=== PATIENT | male | born 1965 | race Caucasian/White ===

== ENCOUNTER 2021-08-19 08:09 | Outpatient (CLI) | payer BC, SELFPAY ==
[2021-08-19 18:37] LABS: Hematocrit 45.8 % (42.0-52.0); Hemoglobin 15.1 g/dL (14.0-18.0); Mean Corpuscular Hemoglobin 30.8 pg (26-34); Mean Corpuscular Volume 93.5 fl (80-100); Mean Platelet Volume 10.4 fl (7.4-10.4); Platelet Count Result 271 k/mm3 (150-375); White Blood Count 7.6 K/mm3 (4.5-10.0)
[2021-08-19 18:44] LABS: Add Urine Microscopic? YES; Appearance Urine Cloudy (Clear); Bacteria Urine Trace /hpf; Bilirubin Urine Negative (Negative); Blood Urine 1+ (Negative); Color Urine Yellow (Yellow); Glucose Urine UA Negative (Negative); Ketones Urine Negative (Negative); Leukocyte Esterase Ur Negative LEU/UL (NEGATIVE); Mucus Urine Rare /lpf; Nitrate Urine Negative (Negative); Protein Urine Negative (Negative); Specific Grav Ur 1.021 (1.001-1.035); Squamous Epithelial Cell Urine Rare /hpf (Few); Urobilinogen Urine Negative mg/dL (<2.0); WBC Urine 0-3 /hpf (0-3)
[2021-08-19 18:51] LABS: Hemoglobin A1C 5.7 % (<5.7)
[2021-08-19 19:47] LABS: Alanine Aminotransferase 46 U/L (4-50); Albumin Level 4.3 g/dL (3.5-5.1); Alkaline Phosphatase 70 U/L (38-126); Anion Gap 9 mmol/L (8-16); Aspartate Amino Transferase 45 U/L (17-59); Bilirubin,Total 0.6 mg/dL (0.2-1.3); Blood Urea Nitrogen 10 mg/dL (9-20); Calcium 9.7 mg/dL (8.4-10.2); Carbon Dioxide 25 mmol/L (22-30); Chloride 112 mmol/L (98-107); Cholesterol 218 mg/dL (0-200); Estimated Glomerular Filt Rate > 60; Glucose 119 mg/dL (65-110); HDL Direct 59 mg/dL; Potassium 4.4 mmol/L (3.4-5.0); Sodium 146 mmol/L (137-145); Triglycerides 156 mg/dL (<150)
[2021-08-19 19:57] LABS: LDL Cholesterol Direct 144 mg/dL
[2021-08-19 20:17] LABS: Prostate Specific Antigen 0.8 ng/mL (< OR = 4.0)
== END 2021-08-19 08:10 | disposition home or self-care (01) ==
PROVIDERS: PCP Family Medicine; Visit Provider Family Medicine
DX: R53.83 Other fatigue (principal); I10 Essential (primary) hypertension; Z00.00 Encounter for general adult medical examination without abnormal findings; R36.1 Hematospermia
CPT/HCPCS: 36415; 80053; 80061; 81001; 83036; 84153; 85027; 87086; 87486; G0103

== ENCOUNTER 2022-05-14 11:59 | Outpatient (CLI) | payer BC, SELFPAY | END 2022-05-14 12:00 | disposition home or self-care (01) | PROVIDERS: PCP Family Medicine; Visit Provider Family Medicine | DX: R63.5 Abnormal weight gain (principal) | CPT/HCPCS: 36415; 84443 ==

== ENCOUNTER 2022-08-04 09:06 | Emergency (ER) | payer BC, SELFPAY ==
[2022-08-04 09:11] VITALS: BP 165/96; PULSE 80; RESP 16; TEMP 36.4; O2SAT 99
--- NOTE | 2022-08-04 09:23 | ED.URI ---
HPI - URI/Sore Throat General Chief Complaint: Upper Respiratory Infection Stated Complaint: Had a sore throat Thursday Time Seen by Provider: 08/04/22 09:23 Source: patient Mode of arrival: ambulatory Limitations: no limitations History of Present Illness HPI Narrative: 57-year-old male presented for complaint of sore throat 2 days ago. At that time he lost his voice and had to call off of work. Endorses symptoms have improved. He states he needs a work note to return to work. Denies any other symptoms at this time. Related Data Allergies Allergy/AdvReac Type Severity Reaction Status Date / Time Penicillins Allergy Unknown Unknown Verified 12/03/21 15:41 Review of Systems Review of Systems: CONSTITUTIONAL: Denies body aches, fever, chills, or sweats. EYES: Denies visual changes, redness, or discharge. ENT: Denies rhinorrhea, congestion, sore throat, or otalgia. CARDIOVASCULAR: Denies chest pain, palpitations, or edema. RESPIRATORY: Denies cough or dyspnea. MUSCULOSKELETAL: Denies back pain, joint pain, or myalgia. NEUROLOGIC: Denies headache, numbness, tingling, or weakness. All systems reviewed & are unremarkable except as noted in HPI and below PMFSH Past Medical History Medical History Hernia HTN (hypertension) Melanoma Surgical History Surgical History H/O hernia repair Hx of tonsillectomy Family History Family History Mother Family history of Alzheimer's disease Family history of malignant neoplasm of breast Father Malignant neoplasm of prostate Family history of lymphoma Social History Social History Smoking packs per day: 1 Smoking cigarettes per day: 20.0 Years smoked: 30 Smoking pack-years: 30.00 Smoking status: Current every day smoker Tobacco type: cigarettes Second hand tobacco smoke exposure: Yes Alcohol intake: current Drinks per week: 18 Substance use: never Comments At time of signature, I have reviewed and agree with nursing past medical, surgical, social and family history unless otherwise noted. Please see nursing chart for further information. There is no relevant family history pertinent to the presenting complaint Exam Narrative: GENERAL: Well-appearing EYES: EOMI. No redness or drainage. Conjunctivae normal. ENT: Mucous membranes pink and moist. No rhinorrhea. TMs normal bilaterally. Throat normal. Uvula absent, tonsils absent. NECK: Normal AROM. Supple. No lymphadenopathy. CHEST: Clear to auscultation. HEART: Regular rate and rhythm. No murmur appreciated. Normal peripheral pulses. ABDOMEN: Soft, nontender, nondistended, normal active bowel sounds. SKIN: Warm, dry, no rash. Capillary refill normal. Normal skin turgor. NEURO: No focal deficits. Alert and oriented x3. Gait steady. Course Course Emergency Course: Patient is aware of diagnosis, understands and agrees to treatment plan. Anticipatory guidance given. Patient agrees to follow-up as directed and is aware of reasons to seek care at the emergency department. Portions of this record may have been created with voice recognition software Level of Care: Express Care Visit Vital Signs Vital signs: Vital Signs Temperature 97.6 F 08/04/22 09:11 Pulse Rate 80 08/04/22 09:11 Respiratory Rate 16 08/04/22 09:11 Blood Pressure 165/96 H 08/04/22 09:11 Pulse Oximetry 99 08/04/22 09:11 Oxygen Delivery Room Air 08/04/22 09:11 Temperature 97.6 F 08/04/22 09:11 Pulse Rate 80 08/04/22 09:11 Respiratory Rate 16 08/04/22 09:11 Blood Pressure 165/96 H 08/04/22 09:11 Pulse Oximetry 99 08/04/22 09:11 Oxygen Delivery Room Air 08/04/22 09:11 MDM - URI/Sore Throat MDM Narrative Medical decision making narrative: Advised sup
== END 2022-08-04 09:35 | disposition home or self-care (01) ==
PROVIDERS: Emergency Provider Nurse Practitioner Family; PCP Family Medicine
DX: J02.9 Acute pharyngitis, unspecified (principal); Z87.891 Personal history of nicotine dependence; I10 Essential (primary) hypertension; Z85.820 Personal history of malignant melanoma of skin
CPT/HCPCS: 99211; G0463

== ENCOUNTER 2023-03-23 13:27 | Outpatient (CLI) | payer BC, SELFPAY ==
[2023-03-23 21:17] LABS: Alanine Aminotransferase 30 U/L (6-50); Albumin Level 4.7 g/dL (3.5-5.1); Alkaline Phosphatase 66 U/L (38-126); Anion Gap 9 mmol/L (8-16); Aspartate Amino Transferase 48 U/L (17-59); Bilirubin,Total 0.5 mg/dL (0.2-1.3); Blood Urea Nitrogen 22 mg/dL (9-20); Calcium 10.4 mg/dL (8.4-10.2); Carbon Dioxide 26 mmol/L (22-30); Chloride 104 mmol/L (98-107); Cholesterol 216 mg/dL (0-200); Estimated Glomerular Filt Rate > 60; Glucose 91 mg/dL (65-110); HDL Direct 48 mg/dL; Potassium 3.9 mmol/L (3.4-5.0); Sodium 139 mmol/L (137-145); Triglycerides 197 mg/dL (<150)
[2023-03-23 21:31] LABS: LDL Cholesterol Direct 123 mg/dL
[2023-03-23 21:42] LABS: Basophils Absolute Auto 0.1 K/mm3 (0.0-0.1); Basophils Percent Auto 1.1 % (0.2-1.2); Eosinophils Absolute Auto 0.2 K/mm3 (0-0.3); Hematocrit 46.6 % (42.0-52.0); Hemoglobin 15.2 g/dL (14.0-18.0); Immature Granulocyte Absolute 0.02 K/mm3 (0.00-0.031); Immature Granulocyte Percent A 0.3 % (0-0.5); Lymphocytes Percent Auto 26.3 % (18.3-44.2); Mean Corpuscular HGB Conc 32.6 g/dl (32-36); Mean Corpuscular Hemoglobin 29.5 pg (26-34); Mean Corpuscular Volume 90.5 fl (80-100); Mean Platelet Volume 10.7 fl (7.4-10.4); Monocytes Absolute Auto 0.6 K/mm3 (0.1-0.6); Monocytes Percent Auto 7.1 % (2.6-8.5); Neutrophils Absolute Auto 5.1 K/mm3 (1.3-6.7); Neutrophils Percent Auto 63.2 % (45.5-73.1); Platelet Count Result 289 k/mm3 (150-375); Red Blood Count 5.15 M/mm3 (4.6-6.20)
[2023-03-23 21:52] LABS: Prostate Specific Antigen 0.8 ng/mL (< OR = 4.0)
[2023-03-23 23:08] LABS: Hemoglobin A1C 5.6 % (<5.7)
== END 2023-03-23 13:28 | disposition home or self-care (01) ==
LOC: ANHBWCLAB 13:28
PROVIDERS: PCP Family Medicine; Visit Provider Family Medicine
DX: Z00.00 Encounter for general adult medical examination without abnormal findings (principal); R73.03 Prediabetes; C43.9 Malignant melanoma of skin, unspecified; G47.33 Obstructive sleep apnea (adult) (pediatric); I10 Essential (primary) hypertension; N52.9 Male erectile dysfunction, unspecified; R53.83 Other fatigue; E66.9 Obesity, unspecified
CPT/HCPCS: 36415; 80053; 80061; 83036; 84153; 84443; 85025; G0103

== ENCOUNTER 2023-10-15 13:57 | Outpatient (CLI) | payer BC, SELFPAY ==
[2023-10-15 19:04] LABS: Alanine Aminotransferase 26 U/L (6-50); Albumin Level 4.3 g/dL (3.5-5.1); Alkaline Phosphatase 70 U/L (38-126); Anion Gap 10 mmol/L (8-16); Aspartate Amino Transferase 43 U/L (17-59); Bilirubin,Total 0.8 mg/dL (0.2-1.3); Blood Urea Nitrogen 16 mg/dL (9-20); Calcium 9.8 mg/dL (8.4-10.2); Carbon Dioxide 28 mmol/L (22-30); Chloride 102 mmol/L (98-107); Cholesterol 233 mg/dL (0-200); Estimated Glomerular Filt Rate > 60; Glucose 94 mg/dL (65-110); HDL Direct 42 mg/dL; Magnesium 2.3 mg/dL (1.6-2.3); Sodium 140 mmol/L (137-145); Triglycerides 195 mg/dL (<150)
[2023-10-15 19:14] LABS: Basophils Absolute Auto 0.1 K/mm3 (0.0-0.1); Basophils Percent Auto 1.6 % (0.2-1.2); Eosinophils Absolute Auto 0.3 K/mm3 (0-0.3); Eosinophils Percent Auto 4.2 % (0-4.4); Hemoglobin 15.5 g/dL (14.0-18.0); Immature Granulocyte Absolute 0.01 K/mm3 (0.00-0.031); Immature Granulocyte Percent A 0.1 % (0-0.5); Lymphocytes Absolute Auto 2.37 K/mm3 (0.9-3.2); Lymphocytes Percent Auto 35.4 % (18.3-44.2); Mean Corpuscular HGB Conc 32.3 g/dl (32-36); Mean Corpuscular Hemoglobin 30.2 pg (26-34); Mean Corpuscular Volume 93.4 fl (80-100); Mean Platelet Volume 10.4 fl (7.4-10.4); Monocytes Absolute Auto 0.5 K/mm3 (0.1-0.6); Monocytes Percent Auto 7.6 % (2.6-8.5); Neutrophils Absolute Auto 3.4 K/mm3 (1.3-6.7); Neutrophils Percent Auto 51.1 % (45.5-73.1); Platelet Count Result 274 k/mm3 (150-375); Red Blood Count 5.14 M/mm3 (4.6-6.20); Red Cell Distribution Width 13.1 % (11.5-14.5); White Blood Count 6.7 K/mm3 (4.5-10.0)
[2023-10-15 19:15] LABS: LDL Cholesterol Direct 135 mg/dL
[2023-10-15 19:40] LABS: Prostate Specific Antigen 0.9 ng/mL (< OR = 4.0)
== END 2023-10-15 13:58 | disposition home or self-care (01) ==
LOC: ANHBWCLAB 13:58
PROVIDERS: PCP Nurse Practitioner Adult Health; Visit Provider Nurse Practitioner Adult Health
DX: I10 Essential (primary) hypertension (principal); R73.03 Prediabetes; Z12.5 Encounter for screening for malignant neoplasm of prostate; Z12.11 Encounter for screening for malignant neoplasm of colon
CPT/HCPCS: 36415; 80053; 80061; 83036; 83735; 84153; 84443; 85025; G0103

== ENCOUNTER 2024-04-18 15:19 | Outpatient (CLI) | payer BC, SELFPAY ==
[2024-04-18 19:43] LABS: Basophils Absolute Auto 0.1 K/mm3 (0.0-0.1); Basophils Percent Auto 1.6 % (0.2-1.2); Eosinophils Absolute Auto 0.2 K/mm3 (0-0.3); Eosinophils Percent Auto 3.3 % (0-4.4); Hematocrit 46.2 % (42.0-52.0); Hemoglobin 15.5 g/dL (14.0-18.0); Immature Granulocyte Absolute 0.02 K/mm3 (0.00-0.031); Immature Granulocyte Percent A 0.3 % (0-0.5); Lymphocytes Absolute Auto 2.28 K/mm3 (0.9-3.2); Lymphocytes Percent Auto 33.1 % (18.3-44.2); Mean Corpuscular HGB Conc 33.5 g/dl (32-36); Mean Corpuscular Hemoglobin 30.8 pg (26-34); Mean Corpuscular Volume 91.8 fl (80-100); Mean Platelet Volume 10.9 fl (7.4-10.4); Monocytes Absolute Auto 0.5 K/mm3 (0.1-0.6); Monocytes Percent Auto 7.7 % (2.6-8.5); Neutrophils Absolute Auto 3.7 K/mm3 (1.3-6.7); Platelet Count Result 255 k/mm3 (150-375); Red Blood Count 5.03 M/mm3 (4.6-6.20); White Blood Count 6.9 K/mm3 (4.5-10.0)
[2024-04-18 20:12] LABS: Alanine Aminotransferase 22 U/L (6-50); Albumin Level 4.7 g/dL (3.5-5.1); Alkaline Phosphatase 69 U/L (38-126); Anion Gap 8 mmol/L (4-12); Aspartate Amino Transferase 63 U/L (17-59); Blood Urea Nitrogen 22 mg/dL (9-20); Calcium 9.5 mg/dL (8.4-10.2); Carbon Dioxide 26 mmol/L (22-30); Chloride 105 mmol/L (98-107); Cholesterol 206 mg/dL (0-200); Estimated Glomerular Filt Rate > 60; Glucose 88 mg/dL (65-110); HDL Direct 43 mg/dL; Magnesium 2.3 mg/dL (1.6-2.3); Potassium 3.9 mmol/L (3.4-5.0); Sodium 139 mmol/L (137-145); Triglycerides 99 mg/dL (<150)
[2024-04-18 20:24] LABS: LDL Cholesterol Direct 132 mg/dL
[2024-04-18 20:43] LABS: Prostate Specific Antigen 0.7 ng/mL (< OR = 4.0)
[2024-04-18 20:59] LABS: Hemoglobin A1C 5.6 % (<5.7)
== END 2024-04-18 15:20 | disposition home or self-care (01) ==
LOC: ANHBWCLAB 15:22
PROVIDERS: PCP Nurse Practitioner Adult Health; Visit Provider Nurse Practitioner Adult Health
DX: Z12.5 Encounter for screening for malignant neoplasm of prostate (principal); I10 Essential (primary) hypertension; E11.9 Type 2 diabetes mellitus without complications
CPT/HCPCS: 36415; 80053; 80061; 83036; 83735; 84153; 84443; 85025; G0103

== ENCOUNTER 2024-05-30 14:16 | Emergency (ER) | payer BC, SELFPAY ==
--- NOTE | ~2024-05-30 | XR_ITS ---
XR chest 2V Ordering provider: Laisha Lipscomb APRN History: 59 years Male with . sob; cough; smoker . Comparison: June 23, 2019 FINDINGS: MEDIASTINUM: The cardiac silhouette is not enlarged. LUNGS: No infiltrates, effusions or pneumothorax. OTHER: No free air under the diaphragm. IMPRESSION: No acute cardiopulmonary pathology. Reviewed, dictated and finalized at location A.
[2024-05-30 14:23] VITALS: BP 153/94; PULSE 79; RESP 20; TEMP 36.6; O2SAT 97
--- NOTE | 2024-05-30 14:33 | ED.URI ---
HPI - URI/Sore Throat General Chief Complaint: Upper Respiratory Infection Stated Complaint: Cough Time Seen by Provider: 05/30/24 14:34 Source: patient, RN notes reviewed and old records reviewed Mode of arrival: ambulatory Limitations: no limitations History of Present Illness HPI Narrative: 59-year-old male to Express Care for complaint of cough, congestion, runny nose and increased shortness of breath for 1 week. Patient endorses 1 pack per day history. Patient has attempted to treat at home with Mucinex, NyQuil, DayQuil little relief. Patient hypertensive in triage. Patient denies difficulty breathing, difficulty swallowing sore throat, productive, chest pain, weakness, headache, ear pain. Patient able to tolerate fluids by mouth. Respirations even nonlabored. Patient able to speak in complete sentences without difficulty. Patient in no acute distress. Related Data Allergies Allergy/AdvReac Type Severity Reaction Status Date / Time Penicillins Allergy Unknown Unknown Verified 05/30/24 14:34 Review of Systems Review of Systems: All systems reviewed & are unremarkable except as noted in HPI and below Constitutional: Constitutional: Reports as per HPI, Denies body ache(s), Denies chills and Reports fever(s) ( Subjective) Eyes: Eyes: Reports no additional eye complaints ENT: Reports system reviewed and no additional complaints, except as documented Cardiovascular: Cardiovascular: Reports as per HPI, Denies chest pain and Reports dyspnea Respiratory: Respiratory: Reports no additional respiratory complaints, Reports cough and Denies dyspnea Musculoskeletal: Musculoskeletal: Reports no additional musculoskeletal complaints Neurologic: Reports system reviewed and no additional complaints, except as documented Psychiatric: Psychiatric: Reports no additional psychiatric complaints PMFSH Past Medical History Medical History Hernia HTN (hypertension) Melanoma Surgical History Surgical History H/O hernia repair Hx of tonsillectomy Family History Family History Mother Family history of Alzheimer's disease Family history of malignant neoplasm of breast Father Malignant neoplasm of prostate Family history of lymphoma Social History Social History Smoking packs per day: 1 Smoking cigarettes per day: 20.0 Years smoked: 30 Smoking pack-years: 30.00 Smoking status: Current every day smoker Tobacco type: cigarettes Second hand tobacco smoke exposure: Yes Alcohol intake: current Drinks per week: 18 Substance use: never Lack of Transportation: No Lack of Food: Never True Current Housing: I Have Housing Concerned About Future Housing: No Difficulty Paying Gas/Electric Bills: No Difficulty Paying for Meds: No Currently Unemployed: No Education: Trade/Vocational Certificate Difficulty w/ Childcare or Family Care: No Living arrangements: with family Gender identity (if verbalized by the patient): Male Comments At the time of my signature, I reviewed and agree with the nursing past medical, surgical, social, and family history. There is no relevant family history pertinent to the patient complaint. Exam Const: General: cooperative, no acute distress, alert, ill appearing chronically, tired appearing and well nourished Nutritional Appearance: well nourished Orientation/consciousness: patient oriented x3 Limitations: no limitations HENMT: Head: normal to inspection Ears: external ears normal Face/Nose/Sinus: Normal external nose present, Normal nares present, normal facial exam, No erythema and No edema Face and sinus: normal facial exam, no erythema and no edema Mouth: Yes Normal oral and palatal mucosa present Throat: postnasal
== END 2024-05-30 15:33 | disposition home or self-care (01) ==
PROVIDERS: Emergency Provider Nurse Practitioner Family; PCP Family Medicine
DX: J40 Bronchitis, not specified as acute or chronic (principal); F17.210 Nicotine dependence, cigarettes, uncomplicated; I10 Essential (primary) hypertension; Z85.820 Personal history of malignant melanoma of skin
CPT/HCPCS: 71046; 99213; G0463

== ENCOUNTER 2024-09-14 08:21 | Outpatient (CLI) | payer BC, SELFPAY ==
[2024-09-14 20:26] LABS: Basophils Absolute Auto 0.1 K/mm3 (0.0-0.1); Eosinophils Absolute Auto 0.3 K/mm3 (0-0.3); Eosinophils Percent Auto 4.3 % (0-4.4); Hematocrit 47.6 % (42.0-52.0); Hemoglobin 15.1 g/dL (14.0-18.0); Immature Granulocyte Absolute 0.01 K/mm3 (0.00-0.031); Immature Granulocyte Percent A 0.1 % (0-0.5); Lymphocytes Absolute Auto 2.61 K/mm3 (0.9-3.2); Lymphocytes Percent Auto 36.6 % (18.3-44.2); Mean Corpuscular HGB Conc 31.7 g/dl (32-36); Mean Corpuscular Hemoglobin 30.7 pg (26-34); Mean Corpuscular Volume 96.7 fl (80-100); Mean Platelet Volume 10.8 fl (7.4-10.4); Monocytes Absolute Auto 0.7 K/mm3 (0.1-0.6); Monocytes Percent Auto 9.4 % (2.6-8.5); Neutrophils Absolute Auto 3.4 K/mm3 (1.3-6.7); Neutrophils Percent Auto 47.6 % (45.5-73.1); Platelet Count Result 251 k/mm3 (150-375); Red Blood Count 4.92 M/mm3 (4.6-6.20); Red Cell Distribution Width 13.9 % (11.5-14.5); White Blood Count 7.1 K/mm3 (4.5-10.0)
[2024-09-14 21:29] LABS: Alanine Aminotransferase 21 U/L (6-50); Albumin Level 4.2 g/dL (3.5-5.1); Alkaline Phosphatase 61 U/L (38-126); Anion Gap 7 mmol/L (4-12); Aspartate Amino Transferase 54 U/L (17-59); Bilirubin,Total 0.5 mg/dL (0.2-1.3); Blood Urea Nitrogen 20 mg/dL (9-20); Calcium 9.4 mg/dL (8.4-10.2); Carbon Dioxide 32 mmol/L (22-30); Chloride 100 mmol/L (98-107); Cholesterol 232 mg/dL (0-200); Estimated Glomerular Filt Rate > 60; Glucose 105 mg/dL (65-110); HDL Direct 46 mg/dL; Magnesium 2.4 mg/dL (1.6-2.3); Potassium 4.6 mmol/L (3.4-5.0); Sodium 139 mmol/L (137-145); Triglycerides 187 mg/dL (<150)
[2024-09-14 21:40] LABS: LDL Cholesterol Direct 134 mg/dL
[2024-09-14 22:02] LABS: Prostate Specific Antigen 0.8 ng/mL (< OR = 4.0)
== END 2024-09-14 08:22 | disposition home or self-care (01) ==
LOC: ANHBWCLAB 08:22
PROVIDERS: PCP Nurse Practitioner Adult Health; Visit Provider Nurse Practitioner Adult Health
DX: E11.9 Type 2 diabetes mellitus without complications (principal); I10 Essential (primary) hypertension; Z12.5 Encounter for screening for malignant neoplasm of prostate
CPT/HCPCS: 36415; 80053; 80061; 83036; 83735; 84153; 84443; 85025; G0103

== ENCOUNTER 2024-12-21 14:56 | Outpatient (CLI) | payer BC, SELFPAY ==
--- OUTSIDE RECORDS SUMMARY | 2024-12-21 16:46 | XMS_ITS | Clinical Summary ---
Author Organization [facility] Medical Office Building B Address [address] [place] [address] Care Team Providers Care Clam Bed Worker Name Role Phone Madeline Carranza DAVID Primary Care Provider [phone] Allergies Active Allergy Reactions Criticality Noted Date Comments Penicillins Medications lisinopriL (PRINIVIL,ZESTRI L) 40 mg tablet Take 1 tablet (40 mg total) by mouth daily Active semaglutide (Wegovy) 0.25 mg/0.5 mL auto-injector Inject 0.5 mL (0.25 mg total) under the skin every 7 days Active Active Problems Problem Noted Date Diagnosed Date Personal history of colonic polyps 10/22/2023 Encounter for screening colonoscopy 10/22/2023 Encounters Date Type Department Care Team Description 12/01/2024 10:17 AM [facility] - 12/01/2024 11:59 PM [facility] Hospital Encounter [facility] Nuclear Medicine [address] [place] [phone] Discharge Disposition: Discharge to home or self care 12/01/2024 9:00 AM [facility] - 12/01/2024 11:59 PM [facility] Hospital Encounter [facility] Nuclear Medicine [address] [place] [phone] Discharge Disposition: Discharge to home or self care 12/01/2024 8:20 AM [facility] - 12/01/2024 11:59 PM [facility] Hospital Encounter [facility] Non-invasive Cardiac Diagnostic Testing [address] [place] [phone] Discharge Disposition: Discharge to home or self care 12/01/2024 7:31 AM [facility] - 12/01/2024 11:59 PM [facility] Hospital Encounter [facility] Nuclear Medicine [address] [place] [phone] Essential (primary) hypertension; Family history of ischemic heart disease and other diseases of the circulatory system Discharge Disposition: Discharge to home or self care 11/04/2024 11:21 AM [facility] - 11/04/2024 11:59 PM [facility] Hospital Encounter [facility] Cardiology [address] [place] [address] Essential (primary) hypertension; Family history of ischemic heart disease and other diseases of the circulatory system Discharge Disposition: Discharge to home or self care from Last 3 Months Surgical History Surgery Date Site/Laterality Comments TONSILLECTOMY Tonsillectomy COLONOSCOPY 05/04/2024 Medical History Medical History Date Comments Hx Other Medical melanoma cancer Family History Medical History Relation Name Comments Other Father 2 Cancer -prostat e, lymphoma; Cause of : Cancer -prostate, lymphoma Other Mother 2 Cancer -breast, melanoma; Relation Name Status Comments Father 1 Father 2 Mother 1 Alive Mother 2 Social History Tobacco Use Types Packs/Day Years Used Date Smoking Tobacco: Every Day Cigarettes Tobacco Cessation:Ready to Q uit: Not Asked; Counseling Given: Not Answered Alcohol Use Standard Drinks/Week Comments Yes 0 (1 standard drink = 0.6 oz pur e alcohol) AUDIT-C Answer Date Recorded Q1: How often do you have a drink containing alc ohol? 2-3 times a week 05/04/2024 Q2: How many drinks containi ng alcohol do you have on a typical day when you are drinking? 3 or 4 05/04/2024 Q3: How often do you have si x or more drinks on one occasion? Less than monthly 05/04/2024 Personal Safety Answer Date Recorded Have you ever been in or are you currently in a harmful physical or emotional relationship or is someone making you feel afraid or unsafe? Denies 05/04/2024 Sex and Gender Information Value Date Recorded Sex Assigned at Not on file Legal Sex Male 11:55 PM [facility] Gender Identity Not on file Sexual Orientation Not on file Obstetrics History Last Filed Vital Signs Vital Sign Reading Time Taken Comments Blood Pressure 143/95 12/01/2024 9:20 AM [facility] Pulse 77 12/01/2024 9:20 AM [facility] Temperature 36.6 C (97.8 F) 05/04/2024 10:08 AM CDT Respiratory Rate 20 05/04/2024 10:08 AM CDT Oxygen Saturation 98% 05/04/2024 10:08 AM CDT Inhaled Oxygen Concentration - - Weight 122.5 kg (270 lb) 05/04/2024 8:35 AM CDT Height 185.4 cm (6' 1 ) 05/04/2024 8:35 AM CDT Body Mass Index 35.62 05/04/2024 8:35 AM CDT Plan of Treatment Health Maintenance Due Date Last Done Comments Depression Screening 1965 Hepatitis C Screening 1965 Prostate Cancer Screening-PSA 1967 DTaP/Tdap/Td Vaccine (1 - Tdap) 1978 Hepatitis B Screening 1985 Regular Well Visit/Exam 18-64 1985 Pneumococcal vaccine <65 (1 of 2 - PCV) 1986 Zoster Vaccine (1 of 2) 2017 Covid-19 Vaccine (3 - season) 06/19/202402/2021, 11/23/2020 Influenza Vaccine (#1) 2024 Colon Cancer Screening-Colonoscopy 05/04/20342023 Procedures Procedure Name Priority Date/Time Associated Diagnosis Comments STRESS TEST FOR DUAL READ Schedule Routine, Read Routine (OP Routine) 12/01/2024 10:44 AM [facility] Essential (primary) hypertension Family history of ischemic heart disease and other diseases of the circulatory system NM MPI SPECT (REST AND/OR STRESS) MULTIPLE STUDIES Schedule Routine, Read Routine (OP Routine) 12/01/2024 10:44 AM CABLE [facility]ER Essential (primary) hypertension Family history of ischemic heart disease and other diseases of the circulatory system STRESS TEST ONLY TREADMILL Routine 11/04/2024 12:44 PM CABLE [facility]ER Essential (primary) hypertension Family history of ischemic heart disease and other diseases of the circulatory system COLONOSCOPY 05/04/2024 8:20 AM CDT from Last 3 Months or Most Recently Relevant to Health Maintenance Results * NM MPI SPECT (Rest and/or Stress) Multiple Studies (12/01/2024 10:44 AM CABLE [facility]ER) Anatomical Region Laterality Modality Body N/A Nuclear Medicine 12/01/2024 2:58 PM [facility] Impressions 12/01/2024 3:15 PM [facility] 1. Normal pharmacologic-stress and rest myocardial perfusion. 2. Normal left ventricular size and systolic function. 3. Coronary artery calcification in left anterior descending coronary artery suggestive of atherosclerosis. Calcification in the descending thoracic aorta suggestive of atherosclerosis. Dr. Gadiel Stiles and Dr. Sherita Brandon also participated in the interpretation of this examination. Dictated by: Aisha Sigala M.D. The radiology attending physician has personally reviewed this study, and had reviewed and/or edited this written report and agrees with it. Electronically signed by: Pasha Chow M.D. Narrative 12/01/2024 3:15 PM [facility] EXAMINATION: MYOCARDIAL IMAGING (PHARMACOLOGIC-STRESS AND REST/SPECT/CT) DATE OF STUDY: 12/01/2024 RADIOPHARMACEUTICAL: 10.73 mCi, 32.8 mCi Tc-99m tetrofosmin i.v. HISTORY: 59-year-old male with hypertension and family history of coronary artery disease. Evaluate for ischemia and/or myocardial infarction. The patient's body mass index (BMI) was 35.60. The electrocardiogram during infusion of the pharmacologic agent will be reported by staff of the Cardiovascular Division is available in the [facility] electronic medical record, see accession: [id number]. FINDINGS: Both stress and rest imaging were performed, in the following order: rest/stress Stress imaging: An intravenous infusion of Regadenoson (0.4 mg of A2A adenosine receptor agonist Regadenoson (Lexiscan), infused intravenously over approximately 10 seconds, followed approximately after another 20 seconds by tracer infusion) was performed without low level exercise on the date indicated above. A complete description of the stress test and electrocardiographic results supervised by staff of the Cardiovascular Division is available in the [facility] electronic medical record. Standard myocardial perfusion images were obtained after tracer injection at the peak effect of the drug. Low-dose CT images spanning the heart were obtained for attenuation correction. Rest Imaging: Standard myocardial perfusion images were obtained after resting tracer injection. Low-dose CT images spanning the heart were obtained for attenuation correction. COMPARISON: No prior available for comparison. The projection images were reviewed for image quality, and reveal no significant artifacts. There is normal distribution of activity in the left and right ventricular myocardium on both stress and rest images. Gated post-stress images demonstrate normal left ventricular volume, normal left ventricular wall motion and normal ejection fraction of 61 % (normal >45%). Additional gated rest images demonstrate normal left ventricular wall motion and a resting left ventricular ejection fraction of 49. Incidental findings on the low-dose CT images: Mild coronary artery calcification in left anterior descending coronary artery. Mild calcification in the descending thoracic aorta. Mild degenerative disease of thoracic spine. Procedure Note Pasha Chow MD - 12/01/2024 EXAMINATION: MYOCARDIAL IMAGING (PHARMACOLOGIC-STRESS AND REST/SPECT/CT) DATE OF STUDY: 12/01/2024 RADIOPHARMACEUTICAL: 10.73 mCi, 32.8 mCi Tc-99m tetrofosmin i.v. HISTORY: 59-year-old male with hypertension and family history of coronary artery disease. Evaluate for ischemia and/or myocardial infarction. The patient's body mass index (BMI) was 35.60. The electrocardiogram during infusion of the pharmacologic agent will be reported by staff of the Cardiovascular Division is available in the [facility] electronic medical record, see accession: [id number]. FINDINGS: Both stress and rest imaging were performed, in the following order: rest/stress Stress imaging: An intravenous infusion of Regadenoson (0.4 mg of A2A adenosine receptor agonist Regadenoson (Lexiscan), infused intravenously over approximately 10 seconds, followed approximately after another 20 seconds by tracer infusion) was performed without low level exercise on the date indicated above. A complete description of the stress test and electrocardiographic results supervised by staff of the Cardiovascular Division is available in the [facility] electronic medical record. Standard myocardial perfusion images were obtained after tracer injection at the peak effect of the drug. Low-dose CT images spanning the heart were obtained for attenuation correction. Rest Imaging: Standard myocardial perfusion images were obtained after resting tracer injection. Low-dose CT images spanning the heart were obtained for attenuation correction. COMPARISON: No prior available for comparison. The projection images were reviewed for image quality, and reveal no significant artifacts. There is normal distribution of activity in the left and right ventricular myocardium on both stress and rest images. Gated post-stress images demonstrate normal left ventricular volume, normal left ventricular wall motion and normal ejection fraction of 61 % (normal >45%). Additional gated rest images demonstrate normal left ventricular wall motion and a resting left ventricular ejection fraction of 49. Incidental findings on the low-dose CT images: Mild coronary artery calcification in left anterior descending coronary artery. Mild calcification in the descending thoracic aorta. Mild degenerative disease of thoracic spine. IMPRESSION: 1. Normal pharmacologic-stress and rest myocardial perfusion. 2. Normal left ventricular size and systolic function. 3. Coronary artery calcification in left anterior descending coronary artery suggestive of atherosclerosis. Calcification in the descending thoracic aorta suggestive of atherosclerosis. Dr. Gadiel Stiles and Dr. Sherita Brandon also participated in the interpretation of this examination. Dictated by: Aisha Sigala M.D. The radiology attending physician has personally reviewed this study, and had reviewed and/or edited this written report and agrees with it. Electronically signed by: Pasha Chow M.D. Madeline Carranza NP IMG NM PROCEDURES Final Result * Stress Test for Myocardial Perfusion (12/01/2024 10:44 AM CABLE [facility]ER) Anatomical Region Laterality Modality Nuclear Medicine 12/01/2024 8:00 AM [facility]ER Narrative 12/01/2024 3:48 [place] [address] MPI Imaging Report Patient Name: JOSE GUADALUPE GENAO A : 1965 Study Date: 12/01/2024 8:00:00 AM Gender: M Tech: BW Ref Provider: MADELINE CARRANZA Height(Cm): BSA: Weight(Kg): Heart Rate: 139 Order Provider: MADELINE CARRANZA PROCEDURES: Pharmacologic SPECT Report.: Myocardial perfusion imaging with Tetrofosmin SPECT at rest and post regadenoson (Lexiscan) infusion. INDICATIONS: CAD Screening and Z82.49 Family history of ischemic heart disease and other diseases of the circulatory system. FINDINGS: Procedure Data: Resting HR 79 bpm Peak HR: 90 bpm Predicted Maximal HR 163 bpm Target HR: 139 bpm Percent Max Predicted HR Achieved: 55.21 % Baseline BP: 143/95 mmHg Peak BP: 111/78 mmHg Exercise Time: 01:00 Reason for Termination: Lexiscan protocol complete. Supervising Physician: The Supervising Physician is Dr. Hays. Resting ECG: Normal sinus rhythm. Poor R wave progression. Post Pharm ECG: No diagnostic ST changes. Arrhythmia: Rare PVCs. Cardiac Symptoms With Stress: Symptoms with stress were Dyspnea, lightheadedness and dizziness. Symptoms were resolved with rest and caffeine. BP Response: Blood pressure response is appropriate. CONCLUSIONS: 1. Test negative for pharmacologic induced inducible ishemia by electrocardiographic criteria at maximal work load. 2. SPECT to follow and should be correlated with this study. Electronically Signed By: Mikaela Hays DO, FACC, FASE, FASNC 12/01/2024 3:15:08 PM [facility]ABLE [facility]ER Procedure Note Mikaela Hays DO - 12/01/2024 [place] [address] MPI Imaging Report Patient Name: JOSE GUADALUPE GENAO A : 1965 Study Date: 12/01/2024 8:00:00 AM Gender: M Tech: BW Ref Provider: MADELINE CARRANZA Height(Cm): BSA: Weight(Kg): Heart Rate: 139 Order Provider: MADELINE CARRANZA PROCEDURES: Pharmacologic SPECT Report.: Myocardial perfusion imaging with Tetrofosmin SPECT at rest and postregadenoson (Lexiscan) infusion. INDICATIONS: CAD Screening and Z82.49 Family history of ischemic heart disease andother diseases of the circulatory system. FINDINGS: Procedure Data: Resting HR 79 bpm Peak HR: 90 bpm Predicted Maximal HR 163 bpm Target HR: 139 bpm Percent Max Predicted HR Achieved: 55.21 % Baseline BP: 143/95 mmHg Peak BP: 111/78 mmHg Exercise Time: 01:00 Reason for Termination: Lexiscan protocol complete. Supervising Physician: The Supervising Physician is Dr. Hays. Resting ECG: Normal sinus rhythm. Poor R wave progression. Post Pharm ECG: No diagnostic ST changes. Arrhythmia: Rare PVCs. Cardiac Symptoms With Stress: Symptoms with stress were Dyspnea, lightheadedness and dizziness. Symptomswere resolved with rest and caffeine. BP Response: Blood pressure response is appropriate. CONCLUSIONS: 1. Test negative for pharmacologic induced inducible ishemia byelectrocardiographic criteria at maximal work load. 2. SPECT to follow and should be correlated with this study. Electronically Signed By: Mikaela Hasy DO, AMARJIT HI FASNC 12/01/2024 3:15:08 PM CABLE PULLER Madeline Carranza NP CV STRESS PROCEDURES Final Res ult * Stress Treadmill Test (11/04/2024 12:44 PM CABLE PULLER) LV EF % CONS SCIMAGE Anatomical Region Laterality Modality Nuclear Medicine 11/04/2024 12:0 2 PM CABLE [facility]ER Narrative 11/04/2024 2:11 PM CABLE [facility]ER [address] [address] EXERCISE STRESS Patient Name: JOSE GUADALUPE GENAO A : 1965 Study Date: 11/04/2024 12:02:00 PM Gender: M Tech: kelsi Location: 7 Ref Provider: MADELINE CARRANZA Height(Cm): 185 BSA: 3.8 Weight(Kg): 280 PROCEDURES: Stress Report: Treadmill stress Exam. INDICATIONS: family hx, Chest pain, and Hypertension. FINDINGS: Procedure Data: Exercise Time: 08:05 Resting HR 89 bpm Peak HR: 122 bpm Predicted Maximal HR 163 bpm Target HR: 139 bpm Percent Max Predicted HR Achieved: 75 % Baseline BP: 154/87 Peak BP: 227/117 METS achieved: 10 Rate-Pressure Product: 98578 BPM*mmHg Max ST: Performed By: Arabella Wall. Resting ECG: Normal sinus rhythm at 90 beats per minute, superior axis, poor R-wave progression. Post ECG: No diagnostic ST changes. Arrhythmia: Rare PVCs. Exercise Capacity: Fair exercise capacity. Target HR Achieved: Target heart rate was achieved. Reason For Termination: Dyspnea. THR achieved. Patient request. Hypertensive response. CONCLUSIONS: 1. Suboptimal stress test in regards to heart rate with the patient achieving only 74% of predicted maximum heart rate. This test is thus nondiagnostic. Recommend a pharmacologic nuclear stress test. 2. No exercise induced chest pain. 3. No definite ischemia on stress EKG. Electronically Signed By: Dr Darek Johnson 11/04/2024 2:10:18 PM CABLE [facility]ER Procedure Note Darek Johnson MD - 11/04/[address] [address] EXERCISE STRESS Patient Name: JOSE GUADALUPE GENAO A : 1965 Study Date: 11/04/2024 12:02:00 PM Gender: M Tech: j Location: 7 [facility] Provider: MADELINE CARRANZA Height(Cm): 185 BSA: 3.8 Weight(Kg): 280 PROCEDURES: Stress Report: Treadmill stress Exam. INDICATIONS: family hx, Chest pain, and Hypertension. FINDINGS: Procedure Data: Exercise Time: 08:05 Resting HR 89 bpm Peak HR: 122 bpm Predicted Maximal HR 163 bpm Target HR: 139 bpm Percent Max Predicted HR Achieved: 75 % Baseline BP: 154/87 Peak BP: 227/117 METS achieved: 10 Rate-Pressure Product: 11024 BPM*mmHg Max ST: Performed By: Arabella Wall. Resting ECG: Normal sinus rhythm at 90 beats per minute, superior axis, poor R- waveprogression. Post ECG: No diagnostic ST changes. Arrhythmia: Rare PVCs. Exercise Capacity: Fair exercise capacity. Target HR Achieved: Target heart rate was achieved. Reason For Termination: Dyspnea. THR achieved. Patient request. Hypertensive response. CONCLUSIONS: 1. Suboptimal stress test in regards to heart rate with the patientachieving only 74% of predicted maximum heart rate. This test is thus nondiagnostic. Recommend a pharmacologic nuclear stress test. 2. No exercise induced chest pain. 3. No definite ischemia on stress EKG. Electronically Signed By: Dr Darek Johsnon 11/04/2024 2:10:18 PM CABLE P[facility]ER us Madeline Carranza NP CV STRESS PROCEDURES Final Res ult * Colonoscopy (05/04/2024 8:20 AM CDT) Anatomical Region Laterality Modality Other Narrative Procedure Note Tana Iniguez MD - 05/04/2024 8:20 AM CDT [facility] Patient Name: Jose Guadalupe Genao Procedure Date: 05/04/2024 8:20 AM Date of : 1965 Admit Type: Outpatient Age: 59 Gender: Male Attending MD: Tana Iniguez M.D. Room: [facility] ENDOSCOPY ROOM 1 Note Status: Finalized Patient Profile: This is a 59 year old male. History of polyps. No family history of colon cancer Procedure: Colonoscopy Indications: High risk colon cancer surveillance: Personalhistory of colonic polyps, Last colonoscopy 5 years ago Referring MD: MICAELA Mann Providers: Tana Iniguez M.D. Impression: - Three 3 to 4 mm polyps in the ascending colon andin the cecum, removed with a jumbo cold forceps.Resected and retrieved. - Diverticulosis in the sigmoid colon and in the ascending colon. - Internal hemorrhoids. Recommendation: - Await pathology results. - Repeat colonoscopy in 4 years for surveillance. - Continue present medications. Medicines: Monitored Anesthesia Care Complications: No immediate complications. Estimated Blood Loss: Estimated blood loss: none. Procedure: Pre-Anesthesia Assessment: - Prior to the procedure, a History and Physicalwas performed, and patient medications and allergieswere reviewed. The patient's tolerance of previous anesthesia was also reviewed. The risks andbenefits of the procedure and the sedation options and risks were discussed with the patient. All questions were answered, and informed consent was obtained. Prior Anticoagulants: The patient has taken noanticoagulant or antiplatelet agents. ASA Grade Assessment: Per anesthesia note and evaluation. After reviewing the risks and benefits, the patient was deemed in satisfactory condition to undergo the procedure. The benefits, risks and alternatives of theprocedure and sedation were discussed and informed consentwas obtained. All questions were answered. Please referto the signed informed consent document in the medical record. The bowel preparation used was Miralax via split dose instruction. The bowel preparation usedwas bisacodyl tablets via split dose instruction. The scope was passed under direct vision. The Pediatric Colonoscope PCF-H190L [id number] was introducedthrough the anus and advanced to the the cecum, identifiedby appendiceal orifice and ileocecal valve. Thequality of the bowel preparation was good. Bowel prep was administered using a split dose. Findings: The perianal and digital rectal examinations were normal. The appendiceal orifice appeared normal. Three semi-sessile polyps were found in the ascending colon andcecum. The polyps were 3 to 4 mm in size. These polyps were removed with a jumbo cold forceps. Resection and retrieval were complete. The descending colon and transverse colon appeared normal. A few small-mouthed diverticula were found in the sigmoid colon and ascending colon. Internal hemorrhoids were found during retroflexion. The hemorrhoids were medium-sized. Electronically signed by Tana Iniguez M.D. Tana Iniguez M.D. 05/04/2024 9:48:32 AM Number of Addenda: 0 Note Initiated On: 05/04/2024 8:20 AM Procedure Code(s): --- Professional --- 03683, Colonoscopy, flexible; with biopsy, single or multiple Diagnosis Code(s): --- Professional --- Z86.010, Personal history of colonic polyps K64.8, Other hemorrhoids D12.2, Benign neoplasm of ascending colon D12.0, Benign neoplasm of cecum K57.30, Diverticulosis of large intestine without perforation orabscess without bleeding CPT copyright 2020 [employer]. All rights reserved. The codes documented in this report are preliminary and upon candy supervisor reviewmay be revised to meet current compliance requirements. Recognized by the [employer] for promoting quality in endoscopy Tana Iniguez MD ENDOSCOPY PROCEDURES Final Result from Last 3 Months or Most Recently Relevant to Health Maintenance Insurance BLUE ACC CHOICE O[employer] Advance Directives For more information, please contact: [phone] * Full Code (Latest Code Status on File) Date Activated Date Inactivated Comments 05/04/2024 8:25 AM 05/04/2024 2:38 PM * Full Code Date Activated Date Inactivated Comments 05/04/2024 8:25 AM 05/04/2024 8:25 AM Care Teams Clam Bed Worker Relationship Specialty Start Date End Date Madeline Carranza NP [address] [place] [address] PCP - General Nurse Practitioner 10/22/23
--- OUTSIDE RECORDS SUMMARY | 2024-12-21 16:46 | XMS_ITS | Referral Summary ---
Author Organization [facility] Address [address] [place] [address] Care Team Providers Care Turn Out Name Role Phone CarrollMadeline elam DAVID Primary Care Provider [phone] Encounters Date Type Department Care Team Description 12/01/2024 10:17 AM GEOSPATIAL IMAGERY INTELLIGENCE ANALYST - 12/01/2024 11:59 PM GEOSPATIAL IMAGERY INTELLIGENCE ANALYST Hospital Encounter [facility] Nuclear Medicine [address] [place] [address] Discharge Disposition: Discharge to home or self care 12/01/2024 8:20 AM GEOSPATIAL IMAGERY INTELLIGENCE ANALYST - 12/01/2024 11:59 PM GEOSPATIAL IMAGERY INTELLIGENCE ANALYST Hospital Encounter [facility] Non-invasive Cardiac Diagnostic Testing [address] [place] [address] Discharge Disposition: Discharge to home or self care 12/01/2024 9:00 AM GEOSPATIAL IMAGERY INTELLIGENCE ANALYST - 12/01/2024 11:59 PM GEOSPATIAL IMAGERY INTELLIGENCE ANALYST Hospital Encounter [facility] Nuclear Medicine [address] [place] [address] Discharge Disposition: Discharge to home or self care 12/01/2024 7:31 AM GEOSPATIAL IMAGERY INTELLIGENCE ANALYST - 12/01/2024 11:59 PM GEOSPATIAL IMAGERY INTELLIGENCE ANALYST Hospital Encounter [facility] Nuclear Medicine [address] [place] [address] Essential (primary) hypertension; Family history of ischemic heart disease and other diseases of the circulatory system Discharge Disposition: Discharge to home or self care 11/04/2024 11:21 AM GEOSPATIAL IMAGERY INTELLIGENCE ANALYST - 11/04/2024 11:59 PM GEOSPATIAL IMAGERY INTELLIGENCE ANALYST Hospital Encounter [facility] Cardiology [address] [place] [address] Essential (primary) hypertension; Family history of ischemic heart disease and other diseases of the circulatory system Discharge Disposition: Discharge to home or self care from Last 3 Months Allergies Active Allergy Reactions Criticality Noted Date Comments Penicillins Medications lisinopriL (PRINIVIL,ZESTRI L) 40 mg tablet Take 1 tablet (40 mg total) by mouth daily Active semaglutide (Wegovy) 0.25 mg/0.5 mL auto-injector Inject 0.5 mL (0.25 mg total) under the skin every 7 days Active Active Problems Problem Noted Date Diagnosed Date Personal history of colonic polyps 10/22/2023 Encounter for screening colonoscopy 10/22/2023 Social History Tobacco Use Types Packs/Day Years [...] on file Legal Sex Male 11:55 PM GEOSPATIAL IMAGERY INTELLIGENCE ANALYST Gender Identity Not on file Sexual Orientation Not on file Last Filed Vital Signs Vital Sign Reading Time Taken Comments Blood Pressure 143/95 12/01/2024 9:20 AM GEOSPATIAL IMAGERY INTELLIGENCE ANALYST Pulse 77 12/01/2024 9:20 AM GEOSPATIAL IMAGERY INTELLIGENCE ANALYST Temperature 36.6 C (97.8 F) 05/04/2024 10:08 AM CDT Respiratory Rate 20 05/04/2024 10:08 AM CDT Oxygen Saturation 98% 05/04/2024 10:08 AM CDT Inhaled Oxygen Concentration - - Weight 122.5 kg (270 lb) 05/04/2024 8:35 AM CDT Height 185.4 cm (6' 1 ) 05/04/2024 8:35 AM CDT Body Mass Index 35.62 05/04/2024 8:35 AM CDT Plan of Treatment Not on file Procedures Procedure Name Priority Date/Time Associated Diagnosis Comments STRESS TEST FOR DUAL READ Schedule Routine, Read Routine (OP Routine) 12/01/2024 10:44 AM GEOSPATIAL IMAGERY INTELLIGENCE ANALYST Essential (primary) hypertension Family history of ischemic heart disease and other diseases of the circulatory system NM MPI SPECT (REST AND/OR STRESS) MULTIPLE STUDIES Schedule Routine, Read Routine (OP Routine) 12/01/2024 10:44 AM GEOSPATIAL IMAGERY INTELLIGENCE ANALYST Essential (primary) hypertension Family history of ischemic heart disease and other diseases of the circulatory system STRESS TEST ONLY TREADMILL Routine 11/04/2024 12:44 PM GEOSPATIAL IMAGERY INTELLIGENCE ANALYST Essential (primary) hypertension Family history of ischemic heart disease and other diseases of the circulatory system COLONOSCOPY 05/04/2024 8:20 AM CDT from Last 3 Months or Most Recently Relevant to Health Maintenance Results * NM MPI SPECT (Rest and/or Stress) Multiple Studies (12/01/2024 10:44 AM GEOSPATIAL IMAGERY INTELLIGENCE ANALYST) Anatomical Region Laterality Modality Body N/A Nuclear Medicine 12/01/2024 2:58 PM GEOSPATIAL IMAGERY INTELLIGENCE ANALYST Impressions 12/01/2024 3:15 PM GEOSPATIAL IMAGERY INTELLIGENCE ANALYST 1. Normal pharmacologic-stress and rest myocardial perfusion. [...] Pasha Chow M.D. Narrative 12/01/2024 3:15 PM GEOSPATIAL IMAGERY INTELLIGENCE ANALYST EXAMINATION: MYOCARDIAL IMAGING (PHARMACOLOGIC-STRESS AND REST/SPECT/CT) DATE [...] the Cardiovascular Division is available in the [facility] electronic medical record, see accession: [id number]. FINDINGS: Both stress and rest imaging were [...] the Cardiovascular Division is available in the [facility] electronic medical record. Standard myocardial perfusion [...] the Cardiovascular Division is available in the [facility] electronic medical record, see accession: [id number]. FINDINGS: Both stress and rest imaging were [...] the Cardiovascular Division is available in the [facility] electronic medical record. Standard myocardial perfusion [...] Test for Myocardial Perfusion (12/01/2024 10:44 AM GEOSPATIAL IMAGERY INTELLIGENCE ANALYST) Anatomical Region Laterality Modality Nuclear Medicine 12/01/2024 8:0 0 AM GEOSPATIAL IMAGERY INTELLIGENCE ANALYST Narrative 12/01/2024 3:48 PM GEOSPATIAL [place]ERY [place] [address] MPI Imaging Report Patient Name: JOSE GUADALUPE [...] Electronically Signed By: Mikaela Hays DO, FACC, ROBINSON OCASIO 12/01/2024 3:15:08 PM GEOSPATIAL IMAGERY INTELLIGENCE ANALYST Procedure Note Mikaela Hays DO - 12/01/2024 [place] [address] MPI Imaging Report Patient Name: JOSE GUADALUPE [...] DO, FACC, FASE, FASNC 12/01/2024 3:15:08 PM GEOSPATIAL IMAGERY INTELLIGENCE ANALYST us Madeline Carranza NP CV STRESS PROCEDURES Final Res ult * Stress Treadmill Test (11/04/2024 12:44 PM GEOSPATIAL IMAGERY INTELLIGENCE ANALYST) LV EF % CONS SCIMAGE Anatomical Region Laterality Modality Nuclear Medicine 11/04/2024 12:0 2 PM GEOSPATIAL IMAGERY INTELLIGENCE ANALYST Narrative 11/04/2024 2:11 PM GEOSPATIAL IMAGERY INTELLIGENCE ANALYST [address] [address] EXERCISE STRESS Patient Name: JOSE GUADALUPE GENAO A : 1965 Study Date: 11/04/2024 12:02:00 PM Gender: M Tech: jkh Location: 7 Ref Provider: MADELINE CARRANZA Height(Cm): [...] BP: 227/117 METS achieved: 10 Rate-Pressure Product: 27493 BPM*mmHg Max ST: Performed By: Arabella Wall. [...] By: Dr Darek Johnson 11/04/2024 2:10:18 PM GEOSPATIAL IMAGERY INTELLIGENCE ANALYST Procedure Note Darek Johnson MD - 11/04/[address] [place] [address] EXERCISE STRESS Patient Name: JOSE GUADALUPE GENAO A : 1965 Study Date: 11/04/2024 12:02:00 PM Gender: M Tech: [facility] Location: 7 Ref Provider: MADELINE CARRANZA Height(Cm): [...] BP: 227/117 METS achieved: 10 Rate-Pressure Product: 37742 BPM*mmHg Max ST: Performed By: Arabella Wall. [...] By: Dr Darek Johnson 11/04/2024 2:10:18 PM GEOSPATIAL IMAGERY INTELLIGENCE ANALYST us Madeline Carranza NP CV STRESS PROCEDURES Final Res ult * Colonoscopy (05/04/2024 8:20 AM CDT) Anatomical Region Laterality Modality Other Narrative Procedure Note Tana Iniguez MD - 05/04/2024 8:20 AM CDT [facility] Patient Name: Jose Guadalupe Genao Procedure Date: 05/04/2024 8:20 AM Date of : 1965 Admit Type: Outpatient Age: 59 Gender: Male Attending MD: Tana Iniguez M.D. Room: [facility] ENDOSCOPY ROOM 1 Note Status: Finalized Patient [...] under direct vision. The Pediatric Colonoscope PCF-H190L [id number] was introducedthrough the anus and advanced to [...] 8:20 AM Procedure Code(s): --- Professional --- 97681, Colonoscopy, flexible; with biopsy, single or multiple Diagnosis Code(s): --- Professional --- Z86.010, Personal history of colonic polyps K64.8, Other hemorrhoids D12.2, Benign neoplasm of ascending colon D12.0, Benign neoplasm of cecum K57.30, Diverticulosis of large intestine without perforation orabscess without bleeding CPT copyright 2020 [employer]. All rights reserved. The codes documented in this report are preliminary and upon outpatient coder reviewmay be revised to meet current compliance requirements. Recognized by the [employer] for promoting quality in endoscopy Tana Iniguez MD ENDOSCOPY PROCEDURES Final Result from Last 3 Months or Most Recently Relevant to Health Maintenance Insurance CHOICE OOS Advance Directives For more information, please contact: [phone] * Full Code (Latest Code Status on File) Date Activated Date Inactivated Comments 05/04/2024 8:25 AM 05/04/2024 2:38 PM * Full Code Date Activated Date Inactivated Comments 05/04/2024 8:25 AM 05/04/2024 8:25 AM Care Teams Turn Out Relationship Specialty Start Date End Date Madeline Carranza NP [facility] [address] PCP - General Nurse Practitioner 10/22/23
--- OUTSIDE RECORDS SUMMARY | 2024-12-21 16:46 | XMS_ITS | Clinical Summary ---
Author Organization [facility] Address [address], [facility] [address] [place] [address] Phone Care Team Providers Care Trackless Trolley Driver Name Role Phone Provider, None Primary Care Provider Unavailabl e Allergies Active Allergy Reactions Criticality Noted Date Comments Penicillins Unknown 09/22/2016 Medications hydroCHLOROthiazi de 50 MG TabletIndications :Essential hypertension Take 1 Tab by mouth daily. 90 Tab 3 07/20/2018 Active amLODIPine (NORVASC) 5 MG Tablet Take 2 Tabs by mouth daily. 180 Tab 3 07/27/2018 Active fish oil-omega-3 fatty acids 1000 MG Capsule Take 1,000 mg by mouth daily. Active Active Problems Problem Noted Date Diagnosed Date Pre-hypertension 03/27/2016 Family History Medical History Relation Name Comments Cancer Father lymophoma, skin , prostate Relation Name Status Comments Father Mother Social History Tobacco Use Types Packs/Day Years Used Date Smoking Tobacco: Every Day Cigarettes 0.3 20 Smokeless Tobacco: Never Tobacco Cessation:Ready to Q uit: No; Counseling Given: Yes Alcohol Use Standard Drinks/Week Comments Yes 12 (1 standard drink = 0.6 oz pu re alcohol) Sex and Gender Information Value Date Recorded Sex Assigned at Not on file Legal Sex Male 11:01 PM CDT Gender Identity Not on file Sexual Orientation Not on file Occupation Industry Job Start Date Job End Date us [employer] Not on file Not on file Not on file Last Filed Vital Signs Vital Sign Reading Time Taken Comments Blood Pressure 134/99 10/21/2018 10:19 AM AUTOMATIC EDGER Pulse 80 10/21/2018 8:30 AM AUTOMATIC EDGER Temperature 37 C (98.6 F) 10/21/2018 10:19 AM AUTOMATIC EDGER Respiratory Rate 17 10/21/2018 10:19 AM AUTOMATIC EDGER Oxygen Saturation 98% 10/21/2018 10:19 AM AUTOMATIC EDGER Inhaled Oxygen Concentration - - Weight 111.1 kg (245 lb) 10/21/2018 8:30 AM AUTOMATIC EDGER Height 185.4 cm (6' 1 ) 10/21/2018 8:30 AM AUTOMATIC EDGER Body Mass Index 32.32 10/21/2018 8:30 AM AUTOMATIC EDGER Plan of Treatment Health Maintenance Due Date Last Done Comments Hepatitis C Virus (HCV) Screening 1965 TdaP Immunization 1965 Hepatitis B Immunization (1 of 3 - 19+ 3-dose series) 1986 Cologuard 2017 Immunochemical Fecal Occult Blood 2017 Pneumococcal Immunization (5 0+ years) (1 of 1 - PCV) 2017 Zoster Immunization (1 of 2) 2017 Colonoscopy 10/21/2021 10/21/2018 Colorectal Cancer Screening 10/21/2021 PSA Discussion 2022 Influenza Immunization (#1) 2024 SARS-COV-2 Immunization (3 - season) 2024 12/21/2020, 11/23/2020 Respiratory Syncytial Virus (RSV) Immunization (Adult) (1 - 1-dose 75+ series) 2042 10/21/2018 Meningococcal Immunization (ACWY) Aged Out No longer eligible b ased on patient's age to complete this topic Pneumococcal Immunization Combined Aged Out No longer eligible b ased on patient's age to complete this topic Rotavirus Immunization Aged Out No lo nger eligible based on patient's age to complete this topic Insurance Care Teams Trackless Trolley Driver Relationship Specialty Start Date End Date Provider, None MALINDA PCP - General 04/04/21
--- OUTSIDE RECORDS SUMMARY | 2024-12-21 16:46 | XMS_ITS | CONTINUITY OF CARE DOCUMENT ---
Author Name derrick meza Address Unknown Organization [facility] Address [address] [place] [address] [address] [place] [address] Phone [phone] Care Team Providers Care Director Of Clinical Education Name Role Phone Federico Fox MD Unavailable [phone] Federico Fox MD Unavailable [phone] INSURANCE PROVIDERS Payer name Policy type / Coverage type [place] [employer] green party ID [facility] [id number] 1
[2024-12-21 18:32] LABS: Alanine Aminotransferase 39 U/L (6-50); Albumin Level 4.4 g/dL (3.5-5.1); Alkaline Phosphatase 73 U/L (38-126); Anion Gap 10 mmol/L (4-12); Aspartate Amino Transferase 47 U/L (17-59); Bilirubin,Total 1.1 mg/dL (0.2-1.3); Blood Urea Nitrogen 11 mg/dL (9-20); Calcium 9.6 mg/dL (8.4-10.2); Carbon Dioxide 30 mmol/L (22-30); Chloride 99 mmol/L (98-107); Cholesterol 224 mg/dL (0-200); Estimated Glomerular Filt Rate > 60; Glucose 100 mg/dL (65-110); HDL Direct 47 mg/dL; Magnesium 2.3 mg/dL (1.6-2.3); Potassium 3.9 mmol/L (3.4-5.0); Sodium 139 mmol/L (137-145); Triglycerides 200 mg/dL (<150)
[2024-12-21 18:44] LABS: LDL Cholesterol Direct 131 mg/dL
[2024-12-21 18:53] LABS: Hemoglobin A1C 6.3 % (<5.7)
[2024-12-21 19:07] LABS: Prostate Specific Antigen 0.6 ng/mL (< OR = 4.0)
== END 2024-12-21 14:57 | disposition home or self-care (01) ==
LOC: ANHBWCLAB 14:58
PROVIDERS: PCP Nurse Practitioner Adult Health; Visit Provider Nurse Practitioner Adult Health
DX: Z12.5 Encounter for screening for malignant neoplasm of prostate (principal); R73.03 Prediabetes; I10 Essential (primary) hypertension
CPT/HCPCS: 36415; 80053; 80061; 83036; 83735; 84153; G0103

== ENCOUNTER 2025-01-19 09:37 | Outpatient (CLI) | payer BC, SELFPAY ==
--- NOTE | 2025-01-19 10:01 | ECHO_ITS ---
Patient Info Name: Jose Guadalupe Genao Age: 59 years : 1965 Gender: Male Ht: 73 in Wt: 280 lbs BSA: 2.60 m2 HR: 64 bpm BP: 142 / 99 mmHg Technical Quality: Fair Exam Date: 01/19/2025 10:05 AM Exam Location: Echo Lab Patient Status: Outpatient Admit Date: 01/19/2025 Staff Ordering Physician: Dagoberto Hudson DO Licensed Retail Supervisor: Olga Barnett RDCS Attending Provider: Dagoberto Hudson DO Referring Physician: Tristan HAMILTON; Exam Type: CA echo dop color flow w con Study Info Indications Z72.0 - Tobacco use Complete two-dimensional, color flow and Doppler transthoracic echocardiogram is performed with contrast to opacify the left ventricle and to improve the deliniation of the left ventricle endocardial borders. Contrast/Agitated Saline Contrast/Ag. Saline: Definity Amount: 2.00 ml IV Access Condition: patent with no signs of infiltration New IV Access: Right Site Condition: IV removed Summary 1. Definity contrast administered improved wall motion interpretation. 2. Left ventricular chamber dimension is normal. 3. Left ventricular systolic function is normal, estimated at 65-70%. 4. There is mild concentric increased left ventricular wall thickness. 5. The left ventricular diastolic function is grade I diastolic dysfunction. 6. E/e' 8 is minimally elevated. 7. There is trace tricuspid valve regurgitation. 8. No pulmonary hypertension, estimated pulmonary arterial systolic pressure is 26 mmHg. Left Ventricle E/e' 8 is minimally elevated. Definity contrast administered improved wall motion interpretation. Left ventricular chamber dimension is normal. Left ventricular systolic function is normal, estimated at 65-70%. There is mild concentric increased left ventricular wall thickness. The left ventricular diastolic function is grade I diastolic dysfunction. Right Ventricle Right ventricular systolic function is normal and with normal TAPSE 2.1 cm. Right ventricular chamber dimension is normal. Left Atria Left atrial chamber dimension is normal. Right Atria Right atrial chamber dimension is normal. Aortic Valve The aortic valve is trileaflet. There is no aortic valve stenosis. There is no aortic valve regurgitation. Pulmonic Valve There is no pulmonic regurgitation. Mitral Valve There is no mitral valve stenosis. There is no mitral valve regurgitation. Tricuspid Valve There is trace tricuspid valve regurgitation. No pulmonary hypertension, estimated pulmonary arterial systolic pressure is 26 mmHg. Pericardium/Pleural There is no pericardial effusion. Inferior Vena Cava Normal inferior vena cava with >50% collapse upon inspiration consistent with normal right atrial pressure, 5 mmHg. Aorta The aortic root size at the sinus of Valsalva is normal. Left Ventricular Outflow Tract Name Value Normal LVOT 2D LVOT Diameter 1.98 cm LVOT Doppler LVOT Peak Gradient 5 mmHg LVOT Mean Gradient 3 mmHg LVOT VTI 24.48 cm LVOT VTI/AV VTI Ratio 0.76 LVOT Stroke Volume 75.69 ml LVOT CO 15.15 l/min LVOT CI 5.82 L/min/m2 Pulmonic Valve Name Value Normal PV Doppler PV Peak Gradient 6 mmHg Mitral Valve Name Value Normal MV Doppler MV Decel [place] 287.97 cm/s2 MV PHT 0 s MV Area (PHT) 3.04 cm2 4.00-5.00 MV Diastolic Function MV E Peak Velocity 71.89 cm/s MV A Peak Velocity 95.32 cm/s MV E/A 0.75 MV Decel Time 0 s MV Annular TDI MV E/e' (Septal) 9.47 <=8.00 MV E/e' (Lateral) 7.19 <=8.00 MV E/e' (Average) 8.33 Tricuspid Valve Name Value Normal TV Regurgitation Doppler TR Peak Velocity 231.04 cm/s TR Peak Gradient 21 mmHg Estimated PAP/RSVP RA Pressure 5 mmHg <=5 PA Systolic Pressure 26 mmHg <36 RV Systolic Pressure 26 mmHg <36 Aorta Name Value Normal Ascending Aorta Ao Root Diameter (MM) 4.04 cm Ao Root Diam Index (MM) 1.55 cm/m2 Aortic Valve Name Value Normal AV Doppler AV Peak Velocity 156.29 cm/s AV Peak Gradient 10 mmHg AV Mean Gradient 6 mmHg AV VTI 32.00 cm AV Area (Cont Eq VTI) 2.37 cm2 >=3.00 AV Area (Cont Eq Byron) 2.27 cm2 AV Regurgitation 2D LVOT Area 3.09 cm2 Ventricles Name Value Normal LV Dimensions 2D/MM IVS Diastolic Thickness (2D) 1.36 cm 0.60-1.00 LVID Diastole (2D) 4.30 cm 4.20-5.80 LVIW Diastolic Thickness (2D) 1.36 cm 0.60-1.00 LVID Systole (2D) 2.79 cm 2.50-4.00 LVOT Diameter 1.98 cm LV Mass (2D Cubed) 222.48 g 88.00-224.00 LV Mass Index (2D Cubed) 0.01 g/cm2 0.00-0.01 Relative Wall Thickness (2D) 0.63 LV Fractional Shortening/Ejection Fraction 2D/MM LV Fractional Shortening (2D) 35 % 25-43 LV EF (2D Teicholz) 65 % 52-72 LV Diastolic Volume (4C MOD) 93.97 ml LV EF (4C MOD) 75 % LV Diastolic Volume (2C MOD) 95.17 ml LV EF (2C MOD) 67 % LV Diastolic Volume (BP MOD) 96.15 ml 62.00-150.00 LV Diastolic Volume Index (BP MOD) 0.04 l/m2 0.03-0.07 LV Systolic Volume (BP MOD) 28.15 ml 21.00-61.00 LV Systolic Volume Index (BP MOD) 0.01 l/m2 0.01-0.03 LV EF (BP MOD) 71 % 52-72 LV Diastolic Length (4C) 7.42 cm LV Systolic Length (4C) 5.46 cm LV Stroke Volume (4C MOD) 70.08 ml RV Dimensions 2D/MM RVID Diastole (2D) 4.18 cm 2.50-3.50 Atria Name Value Normal LA Dimensions LA Dimension (MM) 0.00 cm 3.00-4.10 LA Volume (4C A-L) 47.45 ml LA Volume (BP A-L) 46.18 ml RA Dimensions RA Area (4C) 18.22 cm2 <=18.00 Report Signatures
--- OUTSIDE RECORDS SUMMARY | 2025-01-19 10:07 | XMS_ITS | Referral Summary ---
[facility] Organization [facility] Address [address] [place] [address] Care Team Providers Care Efficiency Clerk Name Role Phone CarrollMadeline elam DAVID Primary Care Provider [phone] Encounters Date Type Department Care Team Description 12/01/2024 10:17 AM UNDERGROUND REPAIRER - 12/01/2024 11:59 PM UNDERGROUND REPAIRER Hospital Encounter [facility] Nuclear Medicine [address] [place] [address] Discharge Disposition: Discharge to home or self care 12/01/2024 8:20 AM UNDERGROUND REPAIRER - 12/01/2024 11:59 PM UNDERGROUND REPAIRER Hospital Encounter [facility] Non-invasive Cardiac Diagnostic Testing [address] [place] [address] Discharge Disposition: Discharge to home or self care 12/01/2024 9:00 AM UNDERGROUND REPAIRER - 12/01/2024 11:59 PM UNDERGROUND REPAIRER Hospital Encounter [facility] Nuclear Medicine [address] [place] [address] Discharge Disposition: Discharge to home or self care 12/01/2024 7:31 AM UNDERGROUND REPAIRER - 12/01/2024 11:59 PM UNDERGROUND REPAIRER Hospital Encounter [facility] Nuclear Medicine [address] [place] [address] Essential (primary) hypertension; Family history of ischemic heart disease and other diseases of the circulatory system Discharge Disposition: Discharge to home or self care 11/04/2024 11:21 AM UNDERGROUND REPAIRER - 11/04/2024 11:59 PM UNDERGROUND REPAIRER Hospital Encounter [facility] Cardiology [address] [place] [address] Essential (primary) hypertension; Family history of ischemic [...] on file Legal Sex Male 11:55 PM UNDERGROUND REPAIRER Gender Identity Not on file Sexual Orientation Not on file Last Filed Vital Signs Vital Sign Reading Time Taken Comments Blood Pressure 143/95 12/01/2024 9:20 AM UNDERGROUND REPAIRER Pulse 77 12/01/2024 9:20 AM UNDERGROUND REPAIRER Temperature 36.6 C (97.8 F) 05/04/2024 10:08 [...] Read Routine (OP Routine) 12/01/2024 10:44 AM UNDERGROUND REPAIRER Essential (primary) hypertension Family history of ischemic heart disease and other diseases of the circulatory system NM MPI SPECT (REST AND/OR STRESS) MULTIPLE STUDIES Schedule Routine, Read Routine (OP Routine) 12/01/2024 10:44 AM UNDERGROUND REPAIRER Essential (primary) hypertension Family history of ischemic heart disease and other diseases of the circulatory system STRESS TEST ONLY TREADMILL Routine 11/04/2024 12:44 PM UNDERGROUND REPAIRER Essential (primary) hypertension Family history of ischemic heart disease and other diseases of the circulatory system COLONOSCOPY 05/04/2024 8:20 AM CDT from Last 3 Months or Most Recently Relevant to Health Maintenance Results * NM MPI SPECT (Rest and/or Stress) Multiple Studies (12/01/2024 10:44 AM UNDERGROUND REPAIRER) Anatomical Region Laterality Modality Body N/A Nuclear Medicine 12/01/2024 2:58 PM UNDERGROUND REPAIRER Impressions 12/01/2024 3:15 PM UNDERGROUND REPAIRER 1. Normal pharmacologic-stress and rest myocardial perfusion. [...] Pasha Chow M.D. Narrative 12/01/2024 3:15 PM UNDERGROUND REPAIRER EXAMINATION: MYOCARDIAL IMAGING (PHARMACOLOGIC-STRESS AND REST/SPECT/CT) DATE [...] the Cardiovascular Division is available in the [facility] electronic medical record, see accession: [id number]. FINDINGS: Both stress and rest imaging were [...] the Cardiovascular Division is available in the [facility] electronic medical record. Standard myocardial perfusion images [...] the Cardiovascular Division is available in the [facility] electronic medical record, see accession: [id number]. FINDINGS: Both stress and rest imaging were [...] the Cardiovascular Division is available in the [facility] electronic medical record. Standard myocardial perfusion images [...] Test for Myocardial Perfusion (12/01/2024 10:44 AM UNDERGROUND REPAIRER) Anatomical Region Laterality Modality Nuclear Medicine 12/01/2024 8:00 AM UNDERGROUND REPAIRER Narrative 12/01/2024 3:48 [place] [address] MPI Imaging Report Patient Name: JOSE GUADALUPE [...] DO, FACC, FASE, FASNC 12/01/2024 3:15:08 PM UNDERGROUND REPAIRER Procedure Note Mikaela Hays DO - 12/01/2024 [place] [address] MPI Imaging Report Patient Name: JOSE GUADALUPE [...] DO, FACC, FASE, FASNC 12/01/2024 3:15:08 PM UNDERGROUND REPAIRER Madeline Carranza NP CV STRESS PROCEDURES Final Res ult * Stress Treadmill Test (11/04/2024 12:44 PM UNDERGROUND REPAIRER) LV EF % CONS SCIMAGE Anatomical Region Laterality Modality Nuclear Medicine 11/04/2024 12:0 2 PM UNDERGROUND REPAIRER Narrative 11/04/2024 2:11 PM UNDERGROUND REPAIRER [address] [address] EXERCISE STRESS Patient Name: JOSE GUADALUPE GENAO [...] BP: 227/117 METS achieved: 10 Rate-Pressure Product: 20273 BPM*mmHg Max ST: Performed By: Arabella Wall. [...] By: Dr Darek Johnson 11/04/2024 2:10:18 PM UNDERGROUND REPAIRER Procedure Note Darek Johnson MD - 11/04/[address] [place] [address] EXERCISE STRESS Patient Name: JOSE GUADALUPE GENAO A : 1965 Study Date: 11/04/2024 12:02:00 PM Gender: M Tech: [employer] Location: 7 [facility] Provider: MADELINE CARRANZA Height(Cm): 185 BSA: 3.8 Weight(Kg): 280 PROCEDURES: Stress Report: Treadmill stress Exam. INDICATIONS: family hx, Chest pain, and Hypertension. FINDINGS: Procedure Data: Exercise Time: 08:05 Resting HR 89 bpm Peak HR: 122 bpm Predicted Maximal HR 163 bpm Target HR: 139 bpm Percent Max Predicted HR Achieved: 75 % Baseline BP: 154/87 Peak BP: 227/117 METS achieved: 10 Rate-Pressure Product: 25190 BPM*mmHg Max ST: Performed By: Arabella Wall. [...] By: Dr Darek Johnson 11/04/2024 2:10:18 PM UNDERGROUND REPAIRER us Madeline Carranza NP CV STRESS PROCEDURES Final Res ult * Colonoscopy (05/04/2024 8:20 AM CDT) Anatomical Region Laterality Modality Other Narrative Procedure Note Tana Iniguez MD - 05/04/2024 8:20 AM CDT [facility] Patient Name: Jose Guadalupe Genao Procedure Date: 05/04/2024 8:20 AM Date of : 1965 Admit Type: Outpatient Age: 59 Gender: Male Attending MD: Tana Iniguez M.D. Room: [facility] ENDOSCOPY ROOM 1 Note Status: Finalized Patient [...] under direct vision. The Pediatric Colonoscope PCF-H190L [id number] was introducedthrough the anus and advanced to [...] 8:20 AM Procedure Code(s): --- Professional --- 32800, Colonoscopy, flexible; with biopsy, single or multiple Diagnosis Code(s): --- Professional --- Z86.010, Personal history of colonic polyps K64.8, Other hemorrhoids D12.2, Benign neoplasm of ascending colon D12.0, Benign neoplasm of cecum K57.30, Diverticulosis of large intestine without perforation orabscess without bleeding CPT copyright 2020 [employer]. All rights reserved. The codes documented in this report are preliminary and upon supervisor leaf spring repair reviewmay be revised to meet current compliance requirements. Recognized by the [place] [employer] for promoting quality in endoscopy Tana Iniguez MD ENDOSCOPY PROCEDURES Final Result from Last 3 Months or Most Recently Relevant to Health Maintenance Insurance [employer] OOS [employer] Advance Directives For more information, please contact: [phone] * Full Code (Latest Code Status on File) Date Activated Date Inactivated Comments 05/04/2024 8:25 AM 05/04/2024 2:38 PM * Full Code Date Activated Date Inactivated Comments 05/04/2024 8:25 AM 05/04/2024 8:25 AM Care Teams Efficiency Clerk Relationship Specialty Start Date End Date Madeline Carranza NP [facility] [place] [address] PCP - General Nurse Practitioner 10/22/23
--- OUTSIDE RECORDS SUMMARY | 2025-01-19 10:07 | XMS_ITS | Clinical Summary ---
Author Organization [facility] Address [address] [place] [address] Care Team Providers Care Platform Power Technician Name Role Phone Madeline Carranza DAVID Primary Care Provider [phone] Allergies Active Allergy Reactions Criticality Noted Date [...] Department Care Team Description 12/01/2024 10:17 AM [facility] - 12/01/2024 11:59 PM CONTINUOUS PROCESS ROTARY DRUM TANNER Hospital Encounter [facility] Nuclear Medicine [address] [place] [address] Discharge Disposition: Discharge to home or self care 12/01/2024 9:00 AM CONTINUOUS PROCESS ROTARY DRUM TANNER - 12/01/2024 11:59 PM CONTINUOUS PROCESS ROTARY DRUM TANNER Hospital Encounter [facility] Nuclear Medicine [address] [place] [address] Discharge Disposition: Discharge to home or self care 12/01/2024 8:20 AM CONTINUOUS PROCESS ROTARY DRUM TANNER - 12/01/2024 11:59 PM CONTINUOUS PROCESS ROTARY DRUM TANNER Hospital Encounter [facility] Non-invasive Cardiac Diagnostic Testing [address] [place] [address] Discharge Disposition: Discharge to home or self care 12/01/2024 7:31 AM CONTINUOUS PROCESS ROTARY DRUM TANNER - 12/01/2024 11:59 PM CONTINUOUS PROCESS ROTARY DRUM TANNER Hospital Encounter [facility] Nuclear Medicine [address] [place] [address] Essential (primary) hypertension; Family history of ischemic heart disease and other diseases of the circulatory system Discharge Disposition: Discharge to home or self care 11/04/2024 11:21 AM CONTINUOUS PROCESS ROTARY DRUM TANNER - 11/04/2024 11:59 PM CONTINUOUS PROCESS ROTARY DRUM TANNER Hospital Encounter [facility] Cardiology 1 [place] [address] Essential (primary) hypertension; Family history of ischemic [...] on file Legal Sex Male 11:55 PM CONTINUOUS PROCESS ROTARY DRUM TANNER Gender Identity Not on file Sexual Orientation Not on file Obstetrics History Last Filed Vital Signs Vital Sign Reading Time Taken Comments Blood Pressure 143/95 12/01/2024 9:20 AM CONTINUOUS PROCESS ROTARY DRUM TANNER Pulse 77 12/01/2024 9:20 AM CONTINUOUS PROCESS ROTARY DRUM TANNER Temperature 36.6 C (97.8 F) 05/04/2024 10:08 [...] Read Routine (OP Routine) 12/01/2024 10:44 AM CONTINUOUS PROCESS ROTARY DRUM TANNER Essential (primary) hypertension Family history of ischemic heart disease and other diseases of the circulatory system NM MPI SPECT (REST AND/OR STRESS) MULTIPLE STUDIES Schedule Routine, Read Routine (OP Routine) 12/01/2024 10:44 AM CONTINUOUS PROCESS ROTARY DRUM TANNER Essential (primary) hypertension Family history of ischemic heart disease and other diseases of the circulatory system STRESS TEST ONLY TREADMILL Routine 11/04/2024 12:44 PM CONTINUOUS PROCESS ROTARY DRUM TANNER Essential (primary) hypertension Family history of ischemic heart disease and other diseases of the circulatory system COLONOSCOPY 05/04/2024 8:20 AM CDT from Last 3 Months or Most Recently Relevant to Health Maintenance Results * NM MPI SPECT (Rest and/or Stress) Multiple Studies (12/01/2024 10:44 AM CONTINUOUS PROCESS ROTARY DRUM TANNER) Anatomical Region Laterality Modality Body N/A Nuclear Medicine 12/01/2024 2:58 PM CONTINUOUS PROCESS ROTARY DRUM TANNER Impressions 12/01/2024 3:15 PM CONTINUOUS PROCESS ROTARY DRUM TANNER 1. Normal pharmacologic-stress and rest myocardial perfusion. [...] Pasha Chow M.D. Narrative 12/01/2024 3:15 PM CONTINUOUS PROCESS ROTARY DRUM TANNER EXAMINATION: MYOCARDIAL IMAGING (PHARMACOLOGIC-STRESS AND REST/SPECT/CT) DATE [...] the Cardiovascular Division is available in the [facility] electronic medical record, see accession: [id number]. FINDINGS: Both stress and rest imaging were [...] the Cardiovascular Division is available in the [facility] electronic medical record. Standard myocardial perfusion images [...] the Cardiovascular Division is available in the [facility] electronic medical record, see accession: [id number]. FINDINGS: Both stress and rest imaging were [...] the Cardiovascular Division is available in the [facility] electronic medical record. Standard myocardial perfusion images [...] Test for Myocardial Perfusion (12/01/2024 10:44 AM CONTINUOUS PROCESS ROTARY DRUM TANNER) Anatomical Region Laterality Modality Nuclear Medicine 12/01/2024 8:00 AM CONTINUOUS PROCESS ROTARY DRUM TANNER Narrative 12/01/2024 3:48 PM CONTINUOUS [place] [address] MPI Imaging Report Patient Name: JOSE GUADALUPE [...] DO, FACC, FASE, FASNC 12/01/2024 3:15:08 PM CONTINUOUS PROCESS ROTARY DRUM TANNER Procedure Note Mikaela Hays DO - 12/01/2024 [place] [address] MPI Imaging Report Patient Name: JOSE GUADALUPE [...] study. Electronically Signed By: Mikaela Hays DO, AMARJIT HI FASNC 12/01/2024 3:15:08 PM CONTINUOUS PROCESS ROTARY DRUM TANNER Madeline Carranza NP CV STRESS PROCEDURES Final Res ult * Stress Treadmill Test (11/04/2024 12:44 PM CONTINUOUS PROCESS ROTARY DRUM TANNER) LV EF % CONS SCIMAGE Anatomical Region Laterality Modality Nuclear Medicine 11/04/2024 12:0 2 PM CONTINUOUS PROCESS ROTARY DRUM TANNER Narrative 11/04/2024 2:11 PM CONTINUOUS PROCESS ROTARY DRUM TANNER [address] [address] EXERCISE STRESS Patient Name: JOSE GUADALUPE GENAO [...] BP: 227/117 METS achieved: 10 Rate-Pressure Product: 54707 BPM*mmHg Max ST: Performed By: Arabella Wall. [...] By: Dr Darek Johnson 11/04/2024 2:10:18 PM CONTINUOUS PROCESS ROTARY DRUM TANNER Procedure Note Darek Johnson MD - 11/04/[address] [address] EXERCISE STRESS Patient Name: JOSE GUADALUPE GENAO A : 1965 Study Date: 11/04/2024 12:02:00 PM Gender: M Tech: j Location: 7 [facility] Provider: MADELINE CARRANZA Height(Cm): 185 BSA: 3.8 Weight(Kg): 280 PROCEDURES: Stress Report: Treadmill stress Exam. INDICATIONS: family hx, Chest pain, and Hypertension. FINDINGS: Procedure Data: Exercise Time: 08:05 Resting HR 89 bpm Peak HR: 122 bpm Predicted Maximal HR 163 bpm Target HR: 139 bpm Percent Max Predicted HR Achieved: 75 % Baseline BP: 154/87 Peak BP: 227/117 METS achieved: 10 Rate-Pressure Product: 90610 BPM*mmHg Max ST: Performed By: Arabella Wall. [...] By: Dr Darek Johnson 11/04/2024 2:10:18 PM CONTINUOUS PROCESS ROTARY DRUM TANNER us Madeline Carranza NP CV STRESS PROCEDURES Final Res ult * Colonoscopy (05/04/2024 8:20 AM CDT) Anatomical Region Laterality Modality Other Narrative Procedure Note Tana Iniguez MD - 05/04/2024 8:20 AM CDT [facility] Patient Name: Jose Guadalupe Genao Procedure Date: 05/04/2024 8:20 AM Date of : 1965 Admit Type: Outpatient Age: 59 Gender: Male Attending MD: Tana Iniguez M.D. Room: [facility] ENDOSCOPY ROOM 1 Note Status: Finalized Patient [...] under direct vision. The Pediatric Colonoscope PCF-H190L [id number] was introducedthrough the anus and advanced to [...] 8:20 AM Procedure Code(s): --- Professional --- 58240, Colonoscopy, flexible; with biopsy, single or multiple Diagnosis Code(s): --- Professional --- Z86.010, Personal history of colonic polyps K64.8, Other hemorrhoids D12.2, Benign neoplasm of ascending colon D12.0, Benign neoplasm of cecum K57.30, Diverticulosis of large intestine without perforation orabscess without bleeding CPT copyright 2020 [employer]. All rights reserved. The codes documented in this report are preliminary and upon invoice coder reviewmay be revised to meet current compliance requirements. Recognized by the [employer] for promoting quality in endoscopy Tana Iniguez MD ENDOSCOPY PROCEDURES Final Result from Last 3 Months or Most Recently Relevant to Health Maintenance Insurance CHOICE OOS [employer] [facility] CHOICE OOS Advance Directives For more information, please contact: [phone] * Full Code (Latest Code Status on File) Date Activated Date Inactivated Comments 05/04/2024 8:25 AM 05/04/2024 2:38 PM * Full Code Date Activated Date Inactivated Comments 05/04/2024 8:25 AM 05/04/2024 8:25 AM Care Teams Platform Power Technician Relationship Specialty Start Date End Date Madeline Carranza NP NPI: [id number] [place] [address] [place] [address] PCP - General Nurse Practitioner 10/22/23
--- OUTSIDE RECORDS SUMMARY | 2025-01-19 10:07 | XMS_ITS | CONTINUITY OF CARE DOCUMENT ---
Author Name derrick meza Address Unknown Organization [facility] Address [address] [place] [address] [address] [place] [address] Phone [phone] Care Team Providers Care Liquor Grinder Mill Operator Name Role Phone Federico Fox MD Unavailable [phone] Federico Fox MD Unavailable [phone] INSURANCE PROVIDERS Payer name Policy type / Coverage type [place] red republican ID [facility] [id number]
--- OUTSIDE RECORDS SUMMARY | 2025-01-19 10:07 | XMS_ITS | Clinical Summary ---
Author Organization [facility] Address [address], [facility] [address] [place] [address] Phone Care Team Providers Care Graduate Fellow Name Role Phone Provider, None Primary Care [...] Job Start Date Job End Date us [employer] Not on file Not on file Not on file Last Filed Vital Signs Vital Sign Reading Time Taken Comments Blood Pressure 134/99 10/21/2018 10:19 AM NEEDLE LOOM SETTER Pulse 80 10/21/2018 8:30 AM NEEDLE LOOM SETTER Temperature 37 C (98.6 F) 10/21/2018 10:19 AM NEEDLE LOOM SETTER Respiratory Rate 17 10/21/2018 10:19 AM NEEDLE LOOM SETTER Oxygen Saturation 98% 10/21/2018 10:19 AM NEEDLE LOOM SETTER Inhaled Oxygen Concentration - - Weight 111.1 kg (245 lb) 10/21/2018 8:30 AM NEEDLE LOOM SETTER Height 185.4 cm (6' 1 ) 10/21/2018 8:30 AM NEEDLE LOOM SETTER Body Mass Index 32.32 10/21/2018 8:30 AM NEEDLE LOOM SETTER Plan of Treatment Health Maintenance Due Date [...] to complete this topic Insurance Care Teams Graduate Fellow Relationship Specialty Start Date End Date Provider, None MALINDA PCP - General 04/04/21
[2025-01-19] MEDS: PERFLUTREN LIPID MICROSPHERES 1.5 ML VIAL DILUTED TO 10 ML TOTAL VOLUME IV PUSH (10:30)
--- NOTE | 2025-01-19 11:16 | IVDEFINITY ---
Prior to administration of IV Definity the patient was educated on the risks and benefits of the imaging enhancing agent including potential adverse side effects. The patient verbalized understanding. Allergies were verified. No exclusion criteria were identified and at least one of the following inclusion criteria were met: 1) physician request, 2) patient technically difficult to image (per the [place] [employer] Echocardi[employer] guidelines of two or more segments not discernable within the apical view), or 3) questionable left ventricular function. ?
== END 2025-01-19 09:38 | disposition home or self-care (01) ==
PROVIDERS: PCP Nurse Practitioner Adult Health; Visit Provider Internal Medicine Cardiovascular Disease
DX: Z72.0 Tobacco use (principal)
CPT/HCPCS: C8929; Q9957

== ENCOUNTER 2025-04-26 12:08 | Outpatient (CLI) | payer BC, SELFPAY ==
--- NOTE | ~2025-04-26 | XR_ITS ---
Clinical Indication: Dyspnea PA and lateral views of the chest: Comparison: 05/30/2024 Findings: The lungs are clear, without evidence of focal consolidation or pleural effusion. Cardiome diastinal silhouette is stable. Prominent right paratracheal stripe region is unchanged. Stable compr ession deformity is at the mid thoracic spine. Impression: Clear lungs. Stable prominence of the right paratracheal stripe region. Reviewed, dictated and finalized at location . Impression: Clear lungs. Stable prominence of the right paratracheal stripe region.
--- OUTSIDE RECORDS SUMMARY | 2025-04-26 12:12 | XMS_ITS | Clinical Summary ---
Author Organization [facility] Address [address], [facility] [address] [place] [address] Phone Care Team Providers Care Application Programmer Analyst Name Role Phone Provider, None Primary Care [...] Job Start Date Job End Date us [employer] Not on file Not on file Not on file Last Filed Vital Signs Vital Sign Reading Time Taken Comments Blood Pressure 134/99 10/21/2018 10:19 AM BODY STRAIGHTENER Pulse 80 10/21/2018 8:30 AM BODY STRAIGHTENER Temperature 37 C (98.6 F) 10/21/2018 10:19 AM BODY STRAIGHTENER Respiratory Rate 17 10/21/2018 10:19 AM BODY STRAIGHTENER Oxygen Saturation 98% 10/21/2018 10:19 AM BODY STRAIGHTENER Inhaled Oxygen Concentration - - Weight 111.1 kg (245 lb) 10/21/2018 8:30 AM BODY STRAIGHTENER Height 185.4 cm (6' 1) 10/21/2018 8:30 AM BODY STRAIGHTENER Body Mass Index 32.32 10/21/2018 8:30 AM BODY STRAIGHTENER Plan of Treatment Health Maintenance Due Date Last Done Comments Hepatitis C Virus (HCV) Screening 1965 TdaP Immunization 1965 Hepatitis B Immunization (1 of 3 - 19+ 3-dose series) 1986 Cologuard 02/19/2012 Immunochemical Fecal Occult Blood 02/19/2012 Pneumococcal Immunization (5 0+ years) (1 of 1 - PCV) 2017 Zoster Immunization (1 of 2) 2017 Colonoscopy 10/21/2021 10/21/2018 Colorectal Cancer Screening 10/21/2021 PSA Discussion 2022 SARS-COV-2 Immunization ( season) 2024 12/21/2020, 11/23/2020 Influenza Immunization (#1) 2025 Respiratory Syncytial Virus (RSV) Immunization (Adult) (1 - 1-dose 75+ series) 2042 Human Papillomavirus (HPV) Immunization Aged Out No longer eligible b ased on patient's age to complete this topic Meningococcal Immunization (ACWY) Aged Out No longer eligible b ased on patient's age to complete this topic Rotavirus Immunization Aged Out No lo nger eligible based on patient's age to complete this topic Insurance Care Teams Application Programmer Analyst Relationship Specialty Start Date End Date Provider, None MALINDA PCP - General 04/04/21
--- OUTSIDE RECORDS SUMMARY | 2025-04-26 12:12 | XMS_ITS | Referral Summary ---
Author Organization [facility] Address [address] [place] [address] Care Team Providers Care Aircraft Stress Analyst Name Role Phone CarrollCassia elam DAVID Primary Care Provider [phone] Allergies Active Allergy Reactions Criticality Noted Date [...] on file Legal Sex Male 11:55 PM METAL GAUGE MAKER Gender Identity Not on file Sexual Orientation Not on file Last Filed Vital Signs Vital Sign Reading Time Taken Comments Blood Pressure 143/95 12/01/2024 9:20 AM METAL GAUGE MAKER Pulse 77 12/01/2024 9:20 AM METAL GAUGE MAKER Temperature 36.6 C (97.8 F) 05/04/2024 10:08 AM CDT Respiratory Rate 20 05/04/2024 10:08 AM CDT Oxygen Saturation 98% 05/04/2024 10:08 AM CDT Inhaled Oxygen Concentration - - Weight 122.5 kg (270 lb) 05/04/2024 8:35 AM CDT Height 185.4 cm (6' 1) 05/04/2024 8:35 AM CDT Body Mass Index 35.62 05/04/2024 8:35 AM CDT Plan of Treatment Not on file Procedures Procedure Name Priority Date/Time Associated Diagnosis Comments COLONOSCOPY 05/04/2024 8:20 AM CDT from Last 3 Months or Most Recently Relevant to Health Maintenance Results * Colonoscopy (05/04/2024 8:20 AM CDT) Anatomical Region Laterality Modality Other Narrative Procedure Note Tana Iniguez MD - 05/04/2024 8:[address] [facility] Patient Name: Jose Guadalupe Genao Procedure Date: 05/04/2024 8:20 AM Date of : 1965 Admit Type: Outpatient Age: 59 Gender: Male Attending MD: Tana Iniguez M.D. Room: [facility] ENDOSCOPY ROOM 1 Note Status: Finalized Patient [...] under direct vision. The Pediatric Colonoscope PCF-H190L [id number] was introducedthrough the anus and advanced to [...] 8:20 AM Procedure Code(s): --- Professional --- 42759, Colonoscopy, flexible; with biopsy, single or multiple Diagnosis Code(s): --- Professional --- Z86.010, Personal history of colonic polyps K64.8, Other hemorrhoids D12.2, Benign neoplasm of ascending colon D12.0, Benign neoplasm of cecum K57.30, Diverticulosis of large intestine without perforation orabscess without bleeding CPT copyright 2020 [employer]. All rights reserved. The codes documented in this report are preliminary and upon teacher of the sight impaired reviewmay be revised to meet current compliance requirements. Recognized by the [place] for promoting quality in endoscopy Tana Iniguez MD ENDOSCOPY PROCEDURES Final Result from Last 3 Months or Most Recently Relevant to Health Maintenance Insurance BLUE [employer] CHOICE OOS [employer] OOS Advance Directives For more information, please contact: [phone] * Full Code (Latest Code Status on File) Date Activated Date Inactivated Comments 05/04/2024 8:25 AM 05/04/2024 2:38 PM * Full Code Date Activated Date Inactivated Comments 05/04/2024 8:25 AM 05/04/2024 8:25 AM Care Teams Aircraft Stress Analyst Relationship Specialty Start Date End Date Cassia Carranza NP [address] [place] [address] [place] [address] PCP - General Nurse Practitioner 10/22/23
--- OUTSIDE RECORDS SUMMARY | 2025-04-26 12:12 | XMS_ITS | Clinical Summary ---
Author Organization [facility] Medical [facility] Building [address] Address [address] [place] [address] Care Team Providers Care Sleeping Car Porter Name Role Phone CarrollCassia elam DAVID Primary Care Provider [phone] Allergies Active Allergy Reactions Criticality Noted Date Comments Penicillins Medications lisinopriL (PRINIVIL,ZESTRI L) 40 mg tablet Take 1 tablet (40 mg total) by mouth daily Active semaglutide (Wegovy) 0.25 mg/0.5 mL auto-injector Inject 0.5 mL (0.25 mg total) under the skin every 7 days Active Active Problems Problem Noted Date Diagnosed Date Personal history of colonic polyps 10/22/2023 Encounter for screening colonoscopy 10/22/2023 Surgical History Surgery Date Site/Laterality Comments TONSILLECTOMY [...] on file Legal 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 Gender Identity Not on file Sexual Orientation Not on file Obstetrics History Last Filed Vital Signs Vital Sign Reading Time Taken Comments Blood Pressure 143/95 12/01/2024 9:20 AM TUNNEL HEADING INSPECTOR Pulse 77 12/01/2024 9:20 AM TUNNEL HEADING INSPECTOR Temperature 36.6 C (97.8 F) 05/04/2024 10:08 [...] (3 - season) 06/19/202402/2021, 11/23/2020 Influenza Vaccine (Season Ended) 2025 Colon Cancer Screening-Colonoscopy 05/04/20342023 Procedures Procedure Name Priority Date/Time Associated Diagnosis Comments COLONOSCOPY 05/04/2024 8:20 AM CDT from Last 3 Months or Most Recently Relevant to Health Maintenance Results * Colonoscopy (05/04/2024 8:20 AM CDT) Anatomical Region Laterality Modality Other Narrative Procedure Note Tana Iniguez MD - 05/04/2024 8:20 AM CDT [facility] Patient Name: Jose Guadalupe Genao Procedure Date: 05/04/2024 8:20 AM Date of : 1965 Admit Type: Outpatient Age: 59 Gender: Male Attending MD: Tana Iniguez M.D. Room: [facility] ENDOSCOPY ROOM 1 Note Status: Finalized Patient Profile: This is a 59 year old male. History of polyps. No family history of colon cancer Procedure: Colonoscopy Indications: High risk colon cancer surveillance: Personalhistory of colonic polyps, Last colonoscopy 5 years ago Referring MD: Cassia Carranza, ANP Providers: Tana Iniguez M.D. Impression: - Three [...] under direct vision. The Pediatric Colonoscope PCF-H190L [id number] was introducedthrough the anus and advanced to [...] 8:20 AM Procedure Code(s): --- Professional --- 07536, Colonoscopy, flexible; with biopsy, single or multiple Diagnosis Code(s): --- Professional --- Z86.010, Personal history of colonic polyps K64.8, Other hemorrhoids D12.2, Benign neoplasm of ascending colon D12.0, Benign neoplasm of cecum K57.30, Diverticulosis of large intestine without perforation orabscess without bleeding CPT copyright 2020 [employer]. All rights reserved. The codes documented in this report are preliminary and upon rubber calender helper reviewmay be revised to meet current compliance requirements. Recognized by the [employer] for promoting quality in endoscopy Tana Iniguez MD ENDOSCOPY PROCEDURES Final Result from Last 3 Months or Most Recently Relevant to Health Maintenance Insurance Hobzy OOS Hobzy OOS Advance Directives For more information, please contact: [phone] * Full Code (Latest Code Status on File) Date Activated Date Inactivated Comments 05/04/2024 8:25 AM 05/04/2024 2:38 PM * Full Code Date Activated Date Inactivated Comments 05/04/2024 8:25 AM 05/04/2024 8:25 AM Care Teams Sleeping Car Porter Relationship Specialty Start Date End Date Cassia Carranza NP [address] [place] [address] [place] [address] PCP - General Nurse Practitioner 10/22/23
[2025-04-26 21:14] LABS: Alanine Aminotransferase 55 U/L (6-50); Albumin Level 4.4 g/dL (3.5-5.1); Alkaline Phosphatase 62 U/L (38-126); Anion Gap 4 mmol/L (4-12); Aspartate Amino Transferase 84 U/L (17-59); Bilirubin,Total 0.8 mg/dL (0.2-1.3); Blood Urea Nitrogen 14 mg/dL (9-20); Calcium 9.5 mg/dL (8.4-10.2); Carbon Dioxide 32 mmol/L (22-30); Chloride 103 mmol/L (98-107); Estimated Glomerular Filt Rate > 60; Glucose 104 mg/dL (65-110); Potassium 4.3 mmol/L (3.4-5.0); Sodium 139 mmol/L (137-145); Total Protein 7.7 g/dL (6.3-8.2)
[2025-04-26 21:25] LABS: Cholesterol 230 mg/dL (0-200); HDL Direct 47 mg/dL; Triglycerides 170 mg/dL (<150)
== END 2025-04-26 12:09 | disposition home or self-care (01) ==
LOC: ANHBWCLAB 12:10
PROVIDERS: PCP Nurse Practitioner Adult Health; Visit Provider Internal Medicine Cardiovascular Disease
DX: R06.00 Dyspnea, unspecified (principal); E78.5 Hyperlipidemia, unspecified
CPT/HCPCS: 36415; 71046; 80053; 80061

== ENCOUNTER 2025-05-04 14:37 | Outpatient (CLI) | payer BC, SELFPAY ==
--- NOTE | ~2025-05-04 | CT_ITS ---
CT Scan of the Chest without Contrast: Clinical Indication: Lung cancer screening, nicotine dependence Technique: Contiguous sections were acquired throughout the chest without intravenous contrast. Dose reduction technique was used on this scan by utilizing automated exposure control and iterative recon struction technique. The dose-length product (DLP) was 368.47 mGy-cm. Findings: There is no evidence of any significant mediastinal, hilar or axillary lymphadenopathy. Coronary my ry calcifications are present. There is no evidence of pleural or pericardial effusion. The lungs are clear. No pulmonary nodules or infiltrates are noted. Images through the upper abdomen reveal diffuse hepatic steatosis. There is advanced spondylosis of t he mid thoracic spine. Impression: Lung RADS 1: Negative. 12 month follow-up screening CT advised. Reviewed, dictated and finalized at location . Impression: Lung RADS 1: Negative. 12 month follow-up screening CT advised.
--- OUTSIDE RECORDS SUMMARY | 2025-05-04 14:48 | XMS_ITS | Clinical Summary ---
Author Organization [facility] Address [address], [facility] [address] [place] [address] Phone Care Team Providers Care Commercial Attache Name Role Phone Provider, None Primary Care [...] Job Start Date Job End Date us [employer] Not on file Not on file Not on file Last Filed Vital Signs Vital Sign Reading Time Taken Comments Blood Pressure 134/99 10/21/2018 10:19 AM BOOTH CLEANER Pulse 80 10/21/2018 8:30 AM BOOTH CLEANER Temperature 37 C (98.6 F) 10/21/2018 10:19 AM BOOTH CLEANER Respiratory Rate 17 10/21/2018 10:19 AM BOOTH CLEANER Oxygen Saturation 98% 10/21/2018 10:19 AM BOOTH CLEANER Inhaled Oxygen Concentration - - Weight 111.1 kg (245 lb) 10/21/2018 8:30 AM BOOTH CLEANER Height 185.4 cm (6' 1) 10/21/2018 8:30 AM BOOTH CLEANER Body Mass Index 32.32 10/21/2018 8:30 AM BOOTH CLEANER Plan of Treatment Health Maintenance Due Date [...] to complete this topic Insurance Care Teams Commercial Attache Relationship Specialty Start Date End Date Provider, None MALINDA PCP - General 04/04/21
--- OUTSIDE RECORDS SUMMARY | 2025-05-04 14:48 | XMS_ITS | Clinical Summary ---
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 CLERK Gender Identity Not on file Sexual Orientation Not on file Obstetrics History Last Filed Vital Signs Vital Sign Reading Time Taken Comments Blood Pressure 143/95 12/01/2024 9:20 AM CHECK OUT CLERK Pulse 77 12/01/2024 9:20 AM CHECK OUT CLERK Temperature 36.6 C (97.8 F) 05/04/2024 10:08 [...] - season) 06/19/202402/2021, 11/23/2020 Influenza Vaccine (#1) 2025 Colon Cancer Screening-Colonoscopy 05/04/20342023 Procedures Procedure Name Priority Date/Time Associated Diagnosis Comments COLONOSCOPY 05/04/2024 8:20 AM CDT from Last 3 Months or Most Recently Relevant to Health Maintenance Results * Colonoscopy (05/04/2024 8:20 AM CDT) Anatomical Region Laterality Modality Other Narrative Procedure Note Tana Iniguez MD - 05/04/2024 8:[address] [facility] Patient Name: Jose Guadalupe Genao Procedure Date: 05/04/2024 8:20 AM Date of : 1965 Admit Type: Outpatient Age: 59 Gender: Male Attending MD: Tana Iniguez M.D. Room: [facility] ENDOSCOPY ROOM 1 Note Status: Finalized [...] under direct vision. The Pediatric Colonoscope PCF-H190L [id number] was introducedthrough the anus and advanced to [...] 8:20 AM Procedure Code(s): --- Professional --- 97135, Colonoscopy, flexible; with biopsy, single or multiple Diagnosis Code(s): --- Professional --- Z86.010, Personal history of colonic polyps K64.8, Other hemorrhoids D12.2, Benign neoplasm of ascending colon D12.0, Benign neoplasm of cecum K57.30, Diverticulosis of large intestine without perforation orabscess without bleeding CPT copyright 2020 [employer]. All rights reserved. The codes documented in this report are preliminary and upon rewind operator reviewmay be revised to meet current compliance requirements. Recognized by the [employer] for promoting quality in endoscopy Tana Iniguez MD ENDOSCOPY PROCEDURES Final Result from Last 3 Months or Most Recently Relevant to Health Maintenance Insurance Scint-X OOS Scint-X OOS Advance Directives For more information, please contact: [phone] * Full Code (Latest Code Status on File) Date Activated Date Inactivated Comments 05/04/2024 8:25 AM 05/04/2024 2:38 PM * Full Code Date Activated Date Inactivated Comments 05/04/2024 8:25 AM 05/04/2024 8:25 AM Care Teams Cellophane Bag Machine Operator Relationship Specialty Start Date End Date Cassia Carranza NP [address] [place] [address] [place] [address] PCP - General Nurse Practitioner 10/22/23
--- OUTSIDE RECORDS SUMMARY | 2025-05-04 14:48 | XMS_ITS | Referral Summary ---
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 Patient Name: Jose Guadalupe Genao Procedure Date: 05/04/2024 8:20 AM Date of : 1965 Admit Type: Outpatient Age: 59 Gender: Male Attending MD: Tana Iniguez M.D. Room: [facility] ENDOSCOPY ROOM 1 Note Status: Finalized Patient [...] under direct vision. The Pediatric Colonoscope PCF-H190L [id number] was introducedthrough the anus and advanced to [...] 8:20 AM Procedure Code(s): --- Professional --- 55068, Colonoscopy, flexible; with biopsy, single or multiple Diagnosis Code(s): --- Professional --- Z86.010, Personal history of colonic polyps K64.8, Other hemorrhoids D12.2, Benign neoplasm of ascending colon D12.0, Benign neoplasm of cecum K57.30, Diverticulosis of large intestine without perforation orabscess without bleeding CPT copyright 2020 [employer]. All rights reserved. The codes documented in this report are preliminary and upon cisco network engineer reviewmay be revised to meet current compliance requirements. Recognized by the [employer] for promoting quality in endoscopy Tana Iniguez MD ENDOSCOPY PROCEDURES Final Result from Last 3 Months or Most Recently Relevant to Health Maintenance Insurance BLUE ACC CHOICE OOS BLUE ACC CHOICE OOS Advance Directives For more information, please contact: [phone] * Full Code (Latest Code Status on File) Date Activated Date Inactivated Comments 05/04/2024 8:25 AM 05/04/2024 2:38 PM * Full Code Date Activated Date Inactivated Comments 05/04/2024 8:25 AM 05/04/2024 8:25 AM Care Teams Placement Director Relationship Specialty Start Date End Date Cassia Carranza NP [address] [place] [address] [place] [address] PCP - General Nurse Practitioner 10/22/23
== END 2025-05-04 14:38 | disposition home or self-care (01) ==
PROVIDERS: PCP Nurse Practitioner Adult Health; Visit Provider Nurse Practitioner Adult Health
DX: Z12.2 Encounter for screening for malignant neoplasm of respiratory organs (principal); Z87.891 Personal history of nicotine dependence
CPT/HCPCS: 71271

== ENCOUNTER 2025-05-18 12:20 | Outpatient (CLI) | payer BC, SELFPAY ==
--- OUTSIDE RECORDS SUMMARY | 2025-05-18 12:24 | XMS_ITS | Clinical Summary ---
[facility] Organization [facility] Address [address] [place] [address] Care Team Providers Care Registered Mail Clerk Name Role Phone CarrollCassia elam DAVID Primary Care Provider [phone] Allergies Active Allergy Reactions Criticality Noted Date [...] on file Legal Sex Male 11:55 PM CROP PICKER Gender Identity Not on file Sexual Orientation Not on file Obstetrics History Last Filed Vital Signs Vital Sign Reading Time Taken Comments Blood Pressure 143/95 12/01/2024 9:20 AM CROP PICKER Pulse 77 12/01/2024 9:20 AM CROP PICKER Temperature 36.6 C (97.8 F) 05/04/2024 10:08 [...] MD - 05/04/2024 8:20 AM CDT [facility]estive [facility] Patient Name: Jose Guadalupe Genao Procedure Date: 05/04/2024 8:20 AM Date of : 1965 Admit Type: Outpatient Age: 59 Gender: Male Attending MD: Tana Iniguez M.D. Room: [facility] ENDOSCOPY ROOM 1 Note Status: Finalized Patient [...] under direct vision. The Pediatric Colonoscope PCF-H190L [id number] was introducedthrough the anus and advanced to [...] 8:20 AM Procedure Code(s): --- Professional --- 30307, Colonoscopy, flexible; with biopsy, single or multiple Diagnosis Code(s): --- Professional --- Z86.010, Personal history of colonic polyps K64.8, Other hemorrhoids D12.2, Benign neoplasm of ascending colon D12.0, Benign neoplasm of cecum K57.30, Diverticulosis of large intestine without perforation orabscess without bleeding CPT copyright 2020 [place] [employer]. All rights reserved. The codes documented in this report are preliminary and upon network strategist reviewmay be revised to meet current compliance requirements. Recognized by the [place] [employer] for promoting quality in endoscopy Tana Iniguez MD ENDOSCOPY PROCEDURES Final Result from Last 3 Months or Most Recently Relevant to Health Maintenance Insurance Vericept OOS Vericept OOS Advance Directives For more information, please contact: [phone] * Full Code (Latest Code Status on File) Date Activated Date Inactivated Comments 05/04/2024 8:25 AM 05/04/2024 2:38 PM * Full Code Date Activated Date Inactivated Comments 05/04/2024 8:25 AM 05/04/2024 8:25 AM Care Teams Registered Mail Clerk Relationship Specialty Start Date End Date Cassia Carranza NP [address] [place] [address] [place] [address] PCP - General Nurse Practitioner 10/22/23
--- OUTSIDE RECORDS SUMMARY | 2025-05-18 12:24 | XMS_ITS | Referral Summary ---
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 Room: [facility] ENDOSCOPY ROOM 1 Note Status: Finalized Patient [...] under direct vision. The Pediatric Colonoscope PCF-H190L [id number] was introducedthrough the anus and advanced to [...] 8:20 AM Procedure Code(s): --- Professional --- 84165, Colonoscopy, flexible; with biopsy, single or multiple Diagnosis Code(s): --- Professional --- Z86.010, Personal history of colonic polyps K64.8, Other hemorrhoids D12.2, Benign neoplasm of ascending colon D12.0, Benign neoplasm of cecum K57.30, Diverticulosis of large intestine without perforation orabscess without bleeding CPT copyright 2020 [employer]. All rights reserved. The codes documented in this report are preliminary and upon finance admin reviewmay be revised to meet current compliance requirements. Recognized by the [employer] for promoting quality in endoscopy Tana Iniguez MD ENDOSCOPY PROCEDURES Final Result from Last 3 Months or Most Recently Relevant to Health Maintenance Insurance BLUE ACC CHOICE OOS BLUE ACC CHOICE OOS Advance Directives For more information, please contact: [phone] * Full Code (Latest Code Status on File) Date Activated Date Inactivated Comments 05/04/2024 8:25 AM 05/04/2024 2:38 PM * Full Code Date Activated Date Inactivated Comments 05/04/2024 8:25 AM 05/04/2024 8:25 AM Care Teams Ship Yard Electrical Person Relationship Specialty Start Date End Date Cassia Carranza NP [address] [place] [address] [place] [address] PCP - General Nurse Practitioner 10/22/23
--- OUTSIDE RECORDS SUMMARY | 2025-05-18 12:24 | XMS_ITS | Clinical Summary ---
Author Organization [facility] Address [address], [facility] [address] [place] [address] Phone Care Team Providers Care Histotechnician Name Role Phone Provider, None Primary Care [...] Job Start Date Job End Date us [employer] Not on file Not on file Not on file Last Filed Vital Signs Vital Sign Reading Time Taken Comments Blood Pressure 134/99 10/21/2018 10:19 AM COMMUNITY ORGANIZATION DIRECTOR Pulse 80 10/21/2018 8:30 AM COMMUNITY ORGANIZATION DIRECTOR Temperature 37 C (98.6 F) 10/21/2018 10:19 AM COMMUNITY ORGANIZATION DIRECTOR Respiratory Rate 17 10/21/2018 10:19 AM COMMUNITY ORGANIZATION DIRECTOR Oxygen Saturation 98% 10/21/2018 10:19 AM COMMUNITY ORGANIZATION DIRECTOR Inhaled Oxygen Concentration - - Weight 111.1 kg (245 lb) 10/21/2018 8:30 AM COMMUNITY ORGANIZATION DIRECTOR Height 185.4 cm (6' 1) 10/21/2018 8:30 AM COMMUNITY ORGANIZATION DIRECTOR Body Mass Index 32.32 10/21/2018 8:30 AM COMMUNITY ORGANIZATION DIRECTOR Plan of Treatment Health Maintenance Due Date [...] to complete this topic Insurance Care Teams Histotechnician Relationship Specialty Start Date End Date Provider, None MALINDA PCP - General 04/04/21
--- NOTE | 2025-06-07 14:52 | WPDPFTINT ---
PFT Procedure Performed PFT Procedure Performed Plethysmography (Lung Vol) Diffusing Cap (DLCO) Flow Vol Loop Spirometry w/o Bronchodil PFT Interpretation This is a pulmonary function test with spirometry, plethysmography and diffusing capacity. The test was performed and results interpreted in accordance with the 2019 and 2005 ATS/ERS Task Force guidelines respectively using the Global Lung Function Initiative-2012 reference equations. Patient demonstrated good effort and cooperation. Reproducibility criteria were met. The quality of the spirometry maneuver was Grade A. Findings: Spirometry:The contour the expiratory flow tracing is normal. The contour the inspiratory flow tracing is truncated. The FVC is 2.52 L, 49% predicted. The FEV1 is 1.98 L, 49% predicted. The FEV1: FVC ratio 78%. Plethysmography: The total lung capacity is 5.63 L, 74% predicted. The functional residual capacity is 2.94 L, 74% predicted. The residual volume is 2.85 L, 121% predicted. The Residual volume: Total lung capacity ratio is 51%. Diffusing capacity: The diffusing capacity unadjusted for hemoglobin and carboxyhemoglobin is 22.6, 75% predicted. The diffusing capacity adjusted for alveolar volume is 5.36, 130% predicted. Impression: There is decreased total lung capacity, increased Residual volume:Total lung capacity ratio, a normal FEV1:FVC ratio and a decreased FEV1 indicating a complex restrictive abnormality with a severe decrease in the FEV1. The diffusing capacity unadjusted for hemoglobin and carboxyhemoglobin is normal and is increased when adjusted for alveolar volume. There are no prior studies for comparison
== END 2025-05-18 12:21 | disposition home or self-care (01) ==
LOC: ANHPFT 12:21
PROVIDERS: PCP Nurse Practitioner Adult Health; Visit Provider Nurse Practitioner Adult Health
DX: F17.210 Nicotine dependence, cigarettes, uncomplicated (principal)
CPT/HCPCS: 94375; 94726; 94729

== ENCOUNTER 2025-06-12 11:11 | Emergency (ER) | payer BC, SELFPAY ==
[2025-06-12 11:14] VITALS: BP 142/84; PULSE 77; RESP 20; TEMP 36.7; O2SAT 95
--- NOTE | 2025-06-12 11:42 | ED_ITS ---
HPI - Nausea/Vomiting/Diarrhea General Chief complaint: Nausea/Vomiting/Diarrhea Stated complaint: Stomach Problem Source: patient and RN notes reviewed Mode of arrival: ambulatory Limitations: no limitations History of Present Illness HPI Narrative: 60 y/o male with hx HTN and pre DM presented for c/o diarrhea. Onset yesterday. Endorses abdominal cramping and nausea yesterday has resolved. Pt has not eaten anything yet today. Denies hematochezia, melena, vomiting, lethargy or fever. Has not taken anything for symptoms. Related Data Allergies Allergy/AdvReac Type Severity Reaction Status Date / Time Penicillins Allergy Unknown Unknown Verified 05/10/25 15:01 Review of Systems Review of Systems: CONSTITUTIONAL: Denies body aches, fever, chills ENT: Denies rhinorrhea, congestion CARDIOVASCULAR: Denies chest pain, palpitations, or edema. RESPIRATORY: Denies cough or dyspnea. GASTROINTESTINAL: Endorses abdominal cramps nausea, diarrhea. Denies vomiting, hematochezia, melena, hematemesis GENITOURINARY: Denies dysuria, hematuria, or CVA tenderness. SKIN: Denies rash, itching, or wounds. MUSCULOSKELETAL: Denies back pain, joint pain, or myalgia. NEUROLOGIC: Denies headache, numbness, tingling, or weakness. All systems reviewed & are unremarkable except as noted in HPI and below PMFSH Past Medical History Medical History Hernia HTN (hypertension) Melanoma Surgical History Surgical History H/O hernia repair Hx of tonsillectomy Family History Family History Mother Family history of Alzheimer's disease Family history of malignant neoplasm of breast Father Malignant neoplasm of prostate Family history of lymphoma Social History Social History Smoking packs per day: 1 Smoking cigarettes per day: 20.0 Years smoked: 30 Smoking pack-years: 30.00 Smoking status: Current every day smoker Tobacco type: cigarettes Second hand tobacco smoke exposure: Yes Alcohol intake: current Drinks per week: 18 Substance use: never Lack of Transportation: No Lack of Food: Never True Current Housing: I Have Housing Concerned About Future Housing: No Difficulty Paying Gas/Electric Bills: No Difficulty Paying for Meds: No Currently Unemployed: No Education: Trade/Vocational Certificate Difficulty w/ Childcare or Family Care: No Living arrangements: with family Gender identity (if verbalized by the patient): Male Comments At time of signature, I have reviewed and agree with nursing past medical, surgical, social and family history unless otherwise noted. Please see nursing chart for further information. There is no relevant family history pertinent to the presenting complaint Exam Narrative: GENERAL: Well-appearing, and in no acute distress. EYES: EOMI. Conjunctivae normal. ENT: Mucous membranes pink and moist. CHEST: No respiratory distress. Clear to auscultation. HEART: Regular rate and rhythm. No murmur appreciated. Normal peripheral pulses. ABDOMEN: abd soft, nondistended, normal active bowel sounds. Nontender abdomen; No guarding, rebound tenderness, asymmetry EXTREMITIES: Normal range of motion. No edema. SKIN: Warm, dry, no rash. Capillary refill normal. Normal skin turgor. NEURO: No focal deficits. Alert and oriented x3. PSYCH: Normal affect. Course Course Emergency Course: Patient is aware of diagnosis, understands and agrees to treatment plan. Anticipatory guidance given. Patient agrees to follow-up as directed and is aware of reasons to seek care at the emergency department. Portions of this record may have been created with voice recognition software Level of Care: Express Care Visit Vital Signs Vital signs: Vital Signs Temperature 98.0 F 06/12/25 11:14 Pulse Rate 77 06/12/25 11:14 Respiratory Rate 20 06/12/25 11:14 Blood Pressure 142/84 H 06/12/25 11:14 Pulse Oximetry 95 06/12/25 11:14 Oxygen Delivery Room Air 06/12/25 11:14 Temperature 98.0 F 06/12/25 11:14 Pulse Rate 77 06/12/25 11:14 Respiratory Rate 20 06/12/25 11:14 Blood Pressure 142/84 H 06/12/25 11:14 Pulse Oximetry 95 06/12/25 11:14 Oxygen Delivery Room Air 06/12/25 11:14 MDM - Nausea/Vomiting/Diarrhea MDM Narrative Medical decision making narrative: Discussed physical exam findings and Advised supportive measures and signs/symptoms to go to the ER. Pt is appropriate for outpt treatment and f/u. Differential Diagnosis Differential diagnosis: Likely traveler's diarrhea, food poisoning, gastroenteritis, clostridium difficile infection, drug-induced nausea and vomiting and dehydration Discharge Plan Discharge Clinical Impression: Acute diarrhea Patient Disposition: Home Condition: Stable Instructions: Antibiotic Form, Acute Diarrhea (ED) Additional Instructions: Stay hydrated. Take small sips of fluid containing electrolytes frequently. Clear liquids (broth, jello, tea, sprite, pedialyte) Eagle foods (bananas, rice, applesauce, toast, crackers) Avoid fatty, greasy, fried or spicy foods. Limit dairy until symptoms are improved. [id number] Imodium according to package directions Recommend probiotic such as align or lactobacillus, or Activia yogurt, to help with symptoms. You should go to the hospital if you experience persistent nausea and vomiting that does not resolve and does not allow you to tolerate any food or fluids, fevers, increasing abdominal pain, persistent diarrhea, dizziness, fainting, or for any other concerns. Follow up with primary care provider in 3 days. Patient Language: Trinidadian Prescriptions: No Action losartan-hydrochlorothiazide 100-25 mg tablet See Rx Instructions .ROUTE .COMPLEX Qty: 90 3RF Dose Instruction: TAKE 1 TABLET BY MOUTH DAILY Rx Instructions: TAKE 1 TABLET BY MOUTH DAILY albuterol sulfate [Ventolin HFA] 90 mcg/actuation HFA aerosol inhaler 1 inh inhalation Q4H PRN (Reason: shortness of breath or wheezing) Qty: 8.5 1RF aspirin 81 mg tablet,delayed release (DR/EC) 81 mg PO DAILY Qty: 90 3RF carvedilol 6.25 mg tablet 6.25 mg PO Q12H Qty: 180 3RF Rx Instructions: must administer with a meal/food metformin [Glucophage XR] 500 mg tablet extended release 24 hr 500 mg PO DAILY Qty: 90 3RF rosuvastatin 10 mg tablet 10 mg PO QHS Qty: 90 3RF tiotropium bromide [Spiriva with HandiHaler] 18 mcg capsule, w/inhalation device 1 cap inhalation DAILY Qty: 90 0RF Rx Instructions: puncture 1 cap using device; one dose = 2 inhalations amlodipine 10 mg tablet See Rx Instructions .ROUTE .COMPLEX Qty: 90 3RF Dose Instruction: TAKE 1 TABLET BY MOUTH DAILY Rx Instructions: TAKE 1 TABLET BY MOUTH DAILY Follow-up/Referrals: Cassia Carranza APRN [Primary Care Provider, Family Practice] Stand Alone Forms: Work/School Release IP Time of Disposition: 11:48
--- OUTSIDE RECORDS SUMMARY | 2025-06-12 11:52 | XMS_ITS | Clinical Summary ---
[facility] Organization [facility] Address [address] [place] [address] Care Team Providers Care Roller Printing Supervisor Name Role Phone CarrollCassia elam DAVID Primary Care Provider [phone] Allergies Active Allergy Reactions Criticality Noted Date [...] on file Legal Sex Male 11:55 PM SCRAP BALER Gender Identity Not on file Sexual Orientation Not on file Obstetrics History Last Filed Vital Signs Vital Sign Reading Time Taken Comments Blood Pressure 143/95 12/01/2024 9:20 AM SCRAP BALER Pulse 77 12/01/2024 9:20 AM SCRAP BALER Temperature 36.6 C (97.8 F) 05/04/2024 10:08 [...] MD - 05/04/2024 8:20 AM CDT [facility] Patient Name: Jose Guadalupe Genao Procedure Date: 05/04/2024 8:20 AM Date of : 1965 Admit Type: Outpatient Age: 59 Gender: Male Attending MD: Tana Iniguez M.D. Room: [facility] ENDOSCOPY ROOM 1 Note Status: Finalized [...] under direct vision. The Pediatric Colonoscope PCF-H190L [id number] was introducedthrough the anus and advanced to [...] 8:20 AM Procedure Code(s): --- Professional --- 01244, Colonoscopy, flexible; with biopsy, single or multiple Diagnosis Code(s): --- Professional --- Z86.010, Personal history of colonic polyps K64.8, Other hemorrhoids D12.2, Benign neoplasm of ascending colon D12.0, Benign neoplasm of cecum K57.30, Diverticulosis of large intestine without perforation orabscess without bleeding CPT copyright 2020 [employer]. All rights reserved. The codes documented in this report are preliminary and upon grand jury deputy sheriff reviewmay be revised to meet current compliance requirements. Recognized by the [employer] for promoting quality in endoscopy Tana Iniguez MD ENDOSCOPY PROCEDURES Final Result from Last 3 Months or Most Recently Relevant to Health Maintenance Insurance [employer] Address: [place] [address] [employer] Address: [place] [address] Advance Directives For more information, please contact: [phone] * Full Code (Latest Code Status on File) Date Activated Date Inactivated Comments 05/04/2024 8:25 AM 05/04/2024 2:38 PM * Full Code Date Activated Date Inactivated Comments 05/04/2024 8:25 AM 05/04/2024 8:25 AM Care Teams Roller Printing Supervisor Relationship Specialty Start Date End Date Cassia Carranza NP [address] [place] [address] [place] [address] PCP - General Nurse Practitioner 10/22/23
--- OUTSIDE RECORDS SUMMARY | 2025-06-12 11:52 | XMS_ITS | Clinical Summary ---
Author Organization [facility] Address [address], [facility] [address] [place] [address] Phone Care Team Providers Care Assistant Accounting Manager Name Role Phone Provider, None Primary Care [...] Job Start Date Job End Date us [employer] Not on file Not on file Not on file Last Filed Vital Signs Vital Sign Reading Time Taken Comments Blood Pressure 134/99 10/21/2018 10:19 AM RESEARCH FELLOW Pulse 80 10/21/2018 8:30 AM RESEARCH FELLOW Temperature 37 C (98.6 F) 10/21/2018 10:19 AM RESEARCH FELLOW Respiratory Rate 17 10/21/2018 10:19 AM RESEARCH FELLOW Oxygen Saturation 98% 10/21/2018 10:19 AM RESEARCH FELLOW Inhaled Oxygen Concentration - - Weight 111.1 kg (245 lb) 10/21/2018 8:30 AM RESEARCH FELLOW Height 185.4 cm (6' 1) 10/21/2018 8:30 AM RESEARCH FELLOW Body Mass Index 32.32 10/21/2018 8:30 AM RESEARCH FELLOW Plan of Treatment Health Maintenance Due Date [...] to complete this topic Insurance Care Teams Assistant Accounting Manager Relationship Specialty Start Date End Date Provider, None MALINDA PCP - General 04/04/21
== END 2025-06-12 11:53 | disposition home or self-care (01) ==
PROVIDERS: Emergency Provider Nurse Practitioner Family; PCP Nurse Practitioner Adult Health
DX: R19.7 Diarrhea, unspecified (principal); F17.210 Nicotine dependence, cigarettes, uncomplicated; I10 Essential (primary) hypertension; R73.03 Prediabetes; Z85.820 Personal history of malignant melanoma of skin
CPT/HCPCS: 99211; G0463

== ENCOUNTER 2025-10-09 08:17 | Outpatient (CLI) | payer BC, SELFPAY ==
--- OUTSIDE RECORDS SUMMARY | 2025-10-09 08:33 | XMS_ITS | Clinical Summary ---
Author Organization [facility] Address [address] [place] [address] Care Team Providers Care License Registration Examiner Name Role Phone Cassia Carranza DAVID Primary Care Provider [phone] Allergies Active Allergy Reactions Criticality Noted Date [...] Encounters Date Type Department Care Team Description 08/21/2025 Orders Only Health system Medicine Pathology Outreach [address] [place] [address] Unknown, Notinfile from Last 3 Months Surgical History Surgery [...] on file Legal Sex Male 11:55 PM LUNCH COOK Gender Identity Not on file Sexual Orientation Not on file Last Filed Vital Signs Vital Sign Reading Time Taken Comments Blood Pressure 143/95 12/01/2024 9:20 AM LUNCH COOK Pulse 77 12/01/2024 9:20 AM LUNCH COOK Temperature 36.6 C (97.8 F) 05/04/2024 10:08 [...] 2) 2017 Covid-19 Vaccine (3 - season) 06/19/202502/2021, 11/23/2020 Influenza Vaccine (#1) 2025 Colon Cancer Screening-Colonoscopy 05/04/20342023 Procedures Procedure Name Priority Date/Time Associated Diagnosis Comments SURGICAL PATHOLOGY Routine 08/21/2025 11 :50 AM LUNCH COOK COLONOSCOPY 05/04/2024 8:20 AM CDT from Last 3 Months or Most Recently Relevant to Health Maintenance Results * Surgical pathology (08/21/2025 11:50 AM LUNCH COOK) Skin, shave biopsy 08/21/2025 11:50 AM LUNCH COOK 08/23/2025 6:53 AM LUNCH COOK Narrative 08/24/2025 3:14 PM LUNCH COOK EPIC results best viewed via link to PDF [facility] [address] [place] [address], [address], [place] [address] [email or web address] Note to Patients: This report may contain a detailed description of human tissue sent by a health care provider to the laboratory for pathologic evaluation. The content of this report is essential for diagnosis and may provide important critical findings. This information may be unfamiliar to patients to review without a medical professional present. It is advised that the patient review this report in the presence of a health care provider who can answer questions and explain the details. FINAL REPORT Patient Information: PATIENT NAME: JOSE GUADALUPE GENAO SEX: M : 1965 (Age: 60) Specimen Information: COLLECTED: 08/21/2025 RECEIVED: 08/23/2025 REPORTED: 08/24/2025 Submitting Physician Information: Danisha Mckeon, [facility], [address] [place] [address], DERMATOPATHOLOGY REPORT RESULTS DIAGNOSIS: SKIN, RIGHT RADIAL DORSAL HAND, SHAVE BIOPSY: VERRUCOUS KERATOSIS sxt/isr By this signature, I attest that the above diagnosis is based upon my personal examination of the slides(and/or other material indicated in the diagnosis). Shanika Yoder M.D. Report Electronically Reviewed and Signed Out By Shanika Yoder M.D. 08/24/2025 15:14:38 CLINICAL INFORMATION NEOPLASM OF UNCERTAIN BEHAVIOR SPECIMEN DATA MICROSCOPIC DESCRIPTION: There is epidermal hyperplasia and hyperkeratosis. (L82.1) GROSS DESCRIPTION: Received in a formalin-containing bottle are multiple irregularly shaped shavings and curettings of ramírez, crusted, and friable skin measuring in aggregate 0.8 by 0.8 by 0.2 cm. The specimen is submitted entirely in a single cassette. Due to shrinkage, measurements may be different than those at time of procedure. joya/anc ICD-9 A; ZSD.232 Clerical Data A; 85794 The characteristics of special, immunohistochemical, and immunofluorescence stains and in-situ hybridization tests performed by the [facility] were deemed acceptable in ongoing quality control tech raw materials measures and in compliance with regulations drawn from the Clinical Laboratory Improvement Act be8504 (CLIA '88). Control reactions for all stains performed were deemed adequate and appropriate by a pathologist prior to evaluation of patient tissue. Some diagnoses were rendered with the assistance of laboratory-developed tests utilizing analyte-specific reagents; the performance characteristic of these tests were determined by [facility] and are not cleared or approved by the [place] Food an Drug administration. Laboratory developed test may only be performed in a facility that is certified by the [facility] as a high-complexity laboratory under CLIA '88. These tests are used for clinical purposes and are not investigational. us Notinfile Unknown LAB PATHOLOGY ORDERABLES Final Result * Colonoscopy (05/04/2024 8:20 AM CDT) Anatomical Region Laterality Modality Other Narrative Procedure Note Tana Iniguez MD - 05/04/2024 8:20 AM CDT [facility] Patient Name: Jose Guadalupe Genao Procedure Date: 05/04/2024 8:20 AM Date of : 1965 Admit Type: Outpatient Age: 59 Gender: Male Attending MD: Tana Iniguez M.D. [facility] Note Status: Finalized [...] under direct vision. The Pediatric Colonoscope PCF-H190L [id number] was introducedthrough the anus and advanced to [...] 8:20 AM Procedure Code(s): --- Professional --- 61253, Colonoscopy, flexible; with biopsy, single or multiple Diagnosis Code(s): --- Professional --- Z86.010, Personal history of colonic polyps K64.8, Other hemorrhoids D12.2, Benign neoplasm of ascending colon D12.0, Benign neoplasm of cecum K57.30, Diverticulosis of large intestine without perforation orabscess without bleeding CPT copyright 2020 [employer]. All rights reserved. The codes documented in this report are preliminary and upon volunteer manager reviewmay be revised to meet current compliance requirements. Recognized by the [employer] for promoting quality in endoscopy Tana Iniguez MD ENDOSCOPY PROCEDURES Final Result from Last 3 Months or Most Recently Relevant to Health Maintenance Insurance [facility] OOS [facility] CHOICE OOS Advance Directives For more information, please contact: [phone] * Full Code (Latest Code Status on File) Date Activated Date Inactivated Comments 05/04/2024 8:25 AM 05/04/2024 2:38 PM * Full Code Date Activated Date Inactivated Comments 05/04/2024 8:25 AM 05/04/2024 8:25 AM Care Teams License Registration Examiner Relationship Specialty Start Date End Date Cassia Carranza NP [address] [place] [address] [place] [address] PCP - General Nurse Practitioner 10/22/23
--- OUTSIDE RECORDS SUMMARY | 2025-10-09 08:33 | XMS_ITS | Clinical Summary ---
Author Organization [facility] Address [address], [facility] [address] [place] [address] Phone Care Team Providers Care Academic Department Chair Name Role Phone Provider, None Primary Care [...] Job Start Date Job End Date us [employer] Not on file Not on file Not on file Last Filed Vital Signs Vital Sign Reading Time Taken Comments Blood Pressure 134/99 10/21/2018 10:19 AM KILN FIRER Pulse 80 10/21/2018 8:30 AM KILN FIRER Temperature 37 C (98.6 F) 10/21/2018 10:19 AM KILN FIRER Respiratory Rate 17 10/21/2018 10:19 AM KILN FIRER Oxygen Saturation 98% 10/21/2018 10:19 AM KILN FIRER Inhaled Oxygen Concentration - - Weight 111.1 kg (245 lb) 10/21/2018 8:30 AM KILN FIRER Height 185.4 cm (6' 1) 10/21/2018 8:30 AM KILN FIRER Body Mass Index 32.32 10/21/2018 8:30 AM KILN FIRER Plan of Treatment Health Maintenance Due Date [...] 10/21/2021 PSA Discussion 2022 Influenza Immunization (#1) 2025 SARS-COV-2 Immunization ( - season) 2025 12/21/2020, 11/23/2020 Respiratory Syncytial Virus (RSV) Immunization [...] to complete this topic Insurance Care Teams Academic Department Chair Relationship Specialty Start Date End Date Provider, None MALINDA PCP - General 04/04/21
[2025-10-09 18:55] LABS: Hemoglobin A1C 6.2 % (<5.7)
[2025-10-09 19:02] LABS: Alanine Aminotransferase 37 U/L (6-50); Albumin Level 4.4 g/dL (3.5-5.1); Alkaline Phosphatase 60 U/L (38-126); Anion Gap 7 mmol/L (4-12); Aspartate Amino Transferase 65 U/L (17-59); Bilirubin,Total 0.6 mg/dL (0.2-1.3); Blood Urea Nitrogen 24 mg/dL (9-20); Calcium 10.6 mg/dL (8.4-10.2); Carbon Dioxide 30 mmol/L (22-30); Chloride 101 mmol/L (98-107); Cholesterol 150 mg/dL (0-200); Estimated Glomerular Filt Rate > 60; Glucose 109 mg/dL (65-110); HDL Direct 49 mg/dL; Potassium 4.1 mmol/L (3.4-5.0); Sodium 138 mmol/L (137-145); Total Protein 7.4 g/dL (6.3-8.2); Triglycerides 177 mg/dL (<150)
== END 2025-10-09 08:18 | disposition home or self-care (01) ==
PROVIDERS: PCP Nurse Practitioner Adult Health; Visit Provider Internal Medicine Cardiovascular Disease
DX: E78.5 Hyperlipidemia, unspecified (principal); R73.03 Prediabetes
CPT/HCPCS: 36415; 80053; 80061; 83036